=== PATIENT | female | born 1985 | race Caucasian/White ===

== ENCOUNTER → 2017-10-21 16:02 | Outpatient (CLI) | payer OTHER, SELFPAY ==
[2017-10-21 17:32] LABS: Glucose Challenge Gest 1H 50g 146 mg/dL (70-140)
[2017-10-21 17:51] LABS: Hematocrit 35.9 % (37-47); Hemoglobin 11.6 g/dl (12.0-15.0); Mean Corp Hgb Conc 32.3 g/gl (32-36); Mean Corpuscular Hgb 29.5 pg (27.0-32.0); Mean Corpuscular Volume 91.3 fL (81-99); Mean Platelet Vol. 11.4 fl (6.2-12.0); Platelet Count 280 K/mm3 (150-450); RBC Distribution Width CV 13.9 % (11.6-14.6); RBC Distribution Width SD 45.7 fl (35.1-43.9); Red Blood Count 3.93 M/mm3 (4.2-5.4); White Blood Count 11.9 K/mm3 (4.4-11.0)
[2017-10-21 17:57] LABS: Scan Indicated on CBC? Y/N NO
== END ==
PROVIDERS: Visit Provider Obstetrics & Gynecology
DX: Z34.82 Encounter for supervision of other normal pregnancy, second trimester (principal)
CPT/HCPCS: 82950; 85027

== ENCOUNTER → 2017-10-27 08:54 | Outpatient (CLI) | payer OTHER, SELFPAY ==
[2017-10-27 10:04] LABS: Glucose GTT-Gestation. Fasting 75 mg/dL (<105)
[2017-10-27 12:01] LABS: Glucose GTT-Gestational 2 Hr 139 mg/dL (<165)
[2017-10-27 12:03] LABS: Glucose GTT-Gestational 1 Hr 165 mg/dL (<190)
[2017-10-27 13:28] LABS: Glucose GTT-Gestational 3 Hr 98 L (<145)
== END ==
PROVIDERS: Visit Provider Obstetrics & Gynecology
DX: O24.912 Unspecified diabetes mellitus in pregnancy, second trimester (principal); Z3A.00 Weeks of gestation of pregnancy not specified
CPT/HCPCS: 36415; 82951; 82952

== ENCOUNTER → 2017-12-24 13:57 | Outpatient (CLI) | payer OTHER, SELFPAY ==
[2017-12-24 17:55] LABS: Group B Strep DNA By PCR Negative (Negative); Internal Control PASS; Probe Check PASS; Specimen Processing Control PASS
== END ==
PROVIDERS: Visit Provider Obstetrics & Gynecology
DX: Z36.85 Encounter for antenatal screening for Streptococcus B (principal)
CPT/HCPCS: 87081; 87653

== ENCOUNTER 2018-01-23 01:50 | Inpatient (IN) | payer OTHER, SELFPAY ==
[2018-01-23] VITALS (20 sets, daily range): BP systolic 108–148; BP diastolic 47–90; PULSE 78–94; RESP 16–18; TEMP 36.1–37.2; O2SAT 16–99; BMI 33.6
[2018-01-23] MEDS: Lactated Ringers 1,000 ML 50 ML IV ×3 (02:45→09:42)
[2018-01-23 03:01] LABS: Hematocrit 34.9 % (37-47); Hemoglobin 11.4 g/dl (12.0-15.0); Mean Corp Hgb Conc 32.7 g/gl (32-36); Mean Corpuscular Hgb 27.8 pg (27.0-32.0); Mean Corpuscular Volume 85.1 fL (81-99); Mean Platelet Vol. 11.5 fl (6.2-12.0); Platelet Count 239 K/mm3 (150-450); RBC Distribution Width CV 16.2 % (11.6-14.6); RBC Distribution Width SD 49.4 fl (35.1-43.9); Scan Indicated on CBC? Y/N NO; White Blood Count 14.2 K/mm3 (4.4-11.0)
[2018-01-23] MEDS: Ondansetron 4 MG/2 ML Vial IV (03:12)
[2018-01-23] MEDS: fentaNYL-bupivacaine (epidural) 100 ML BAG EPIDURAL (06:56)
[2018-01-23] MEDS: Oxytocin 30 units/NS 500 ml 30 UNITS/500 ML IV.SOLN IV (09:20)
--- NOTE | 2018-01-23 09:37 | PCM.PN.OB ---
Subjective: Patient presented last evening with active labor. Progressed to 7 cm with a bulgy bag of water. Rupture of membranes performed approximately 0330. After approximately 5-6 hours patient remains at same station and dilation with moderate contractions noted. Cervix is now 7 8 cm 95% effaced -2 to -3 station. Will start Pitocin. I have discussed with patient and her family the possibility of needing to proceed with section for failure to progress and suspected CPD if there is no progress in the next few hours. - Physical Exam Weight: 208 lb 6.4 oz Body Mass Index (BMI) 33.6 Intake and Output for Last 24 Hours 01/21/18 01/22/18 01/23/18 23:59 23:59 23:59 Output Total 450 / 450 Balance -450 / -450 Laboratory Tests Past 24 Hrs 01/23/18 01/23/18 02:45 02:45 WBC 14.2 H RBC 4.10 L Hgb 11.4 L Hct 34.9 L MCV 85.1 MCH 27.8 MCHC 32.7 RDW 16.2 H RDW Differential 49.4 H Plt Count 239 MPV 11.5 Blood Type O POSITIVE Antibody Screen NEGATIVE Medical Necessity - Tobacco Use Smoking Status: Former smoker
[2018-01-23] MEDS: Sodium Citrate/Citric Acid 30 ML UDC PO (11:50)
[2018-01-23] MEDS: Cefazolin 2 GM in 0.9% Normal Saline 100 ML IV (12:03)
[2018-01-23] MEDS: Oxytocin 30 units/NS 500 ml 30 UNITS/500 ML IV.SOLN 167 UNITS IV (12:15)
[2018-01-23] MEDS: Methylergonovine 0.2 MG/ML Ampul IM (12:17)
--- NOTE | 2018-01-23 13:37 | PCM.OP.BLANK ---
Operative Report Date of Procedure: 01/23/18 Surgeon: Jan Ruffin MD, FACOG Warehouse Checker: Hoa Corona MD, FACOG Anesthesia: Bob Ruffin MD Anesthesia: Epidural with Duramorph Pre-op Diagnosis: - -Failure to Progress Post-Op Diagnosis: - -Failure to Progress and Cephalopelvic Disproportion Procedure: Primary Low Transverse Cervical Caesarean Section Findings: Viable male with Apgars of 7/9 in occiput anterior presentation with at least stained meconium amniotic fluid and normal three-vessel placenta. Cord around the neck ?1 loose. Indication: This is a 32-year-old who presents in active labor at 40+ weeks. She progressed to about 7 cm, 90% effaced, and -2--3 station. Despite adequate contractions noted by intrauterine pressure catheter, she did not progress for about 8-10 hours. Given this we decided to proceed with section for failure to progress. care has otherwise been uneventful. The patient has been counseled regarding the risk and indications of this procedure including the possibility of bleeding infection and injury to surrounding structures such as bowel bladder. All questions were answered. Procedure: Patient was taken to the operating room where after spinal anesthesia was placed, the patient was prepped and draped in usual sterile fashion and a Gay catheter was placed. The abdomen was entered through a Pfannenstiel incision and peritoneum was entered bluntly. After developing a bladder flap on the lower uterine segment a low transverse incision was made on the uterus and head was easily delivered onto the operative field the nose mouth and oropharynx were bulb suctioned. Subsequently a viable male infant was born with Apgars of 7/9. The was noted to cry move all extremities vigorously on the operative field. The umbilical cord was doubly clamped and ligated and handed to the nursery personnel who were present for the delivery. Placenta was delivered and noted to be 3 vessels and normal. Uterus was exteriorized and remaining placental tissue was removed. The uterus was then closed in 2 layers first with running locked 0 Vicryl suture followed by a second imbricating layer with 0 Vicryl suture. 0 Vicryl suture was then used in a horizontal mattress interrupted fashion to affect final hemostasis of the uterine incision line. Normal fallopian tubes and ovaries were visualized and the uterus was returned to the pelvis. Hemostasis was noted and rectus abdominis muscles were reapproximated in the midline with interrupted Number 0 Vicryl suture in a horizontal mattress fashion. Fascia was closed with running Number 1 PDS Strata fix suture. Subcutaneous tissue was irrigated with copious amouts of saline solution and then closed with running 3-0 Vicryl suture. Skin was closed with 4-0 monocryl suture in a running subcuticular fashion. Steri strips, telfa, and tape were placed across the incision. The patient tolerated the procedure well and was taken to the recovery room in satisfactory condition. Sponge, needle, and instrument counts were all reportedly correct. EBL was less than 500 cc. Ancef 2 gms IV was given prior to the procedure. Spicemen to Pathology: None Complications: None
[2018-01-23] MEDS: miSOPROStol 100 MCG TABLET 400 MCG RECTAL ×2 (13:45→20:26)
[2018-01-23] MEDS: Ketorolac 30 MG/ML Syringe IV (18:19)
[2018-01-23] MEDS: Cefazolin 1 GM/50 ML BAG IV (20:25)
[2018-01-23] MEDS: Lactated Ringers 1,000 ML 100 ML IV (21:28)
[2018-01-24] VITALS (8 sets, daily range): BP systolic 104–114; BP diastolic 60–69; PULSE 101–121; RESP 16–18; TEMP 36.3–37.5; O2SAT 95–99
[2018-01-24] MEDS: Ketorolac 30 MG/ML Syringe IV ×5 (00:23→23:59)
[2018-01-24] MEDS: miSOPROStol 100 MCG TABLET 400 MCG RECTAL (02:56)
[2018-01-24] MEDS: Cefazolin 1 GM/50 ML BAG IV (04:33)
[2018-01-24 04:51] LABS: Hematocrit 27.3 % (37-47); Mean Corpuscular Hgb 28.7 pg (27.0-32.0); Mean Corpuscular Volume 86.9 fL (81-99); Platelet Count 189 K/mm3 (150-450); RBC Distribution Width CV 16.4 % (11.6-14.6); RBC Distribution Width SD 50.3 fl (35.1-43.9); Red Blood Count 3.14 M/mm3 (4.2-5.4); Scan Indicated on CBC? Y/N NO; White Blood Count 12.6 K/mm3 (4.4-11.0)
[2018-01-24] MEDS: 0.9% Saline Lock 10 ML Syringe IV ×4 (05:35→17:39)
[2018-01-24] MEDS: oxyCODONE 5 MG Tablet PO ×2 (13:05→17:45)
--- NOTE | 2018-01-24 19:00 | PCM.PN.OB ---
Subjective: Postoperative day #1 status post primary section Patient without complaints. Tolerating diet well. Some problems with mild intermittent shortness of breath overnight which has resolved. - Physical Exam Vital Signs AF, VSS Temp Pulse Resp BP Pulse Ox 99.5 F H 108 H 16 110/60 97 01/24/18 12:00 01/24/18 12:00 01/24/18 12:00 01/24/18 12:00 01/24/18 12:00 Oxygen Delivery Method Room Air Weight: 208 lb 6.4 oz Body Mass Index (BMI) 33.6 Intake and Output for Last 24 Hours 01/22/18 01/23/18 01/24/18 23:59 23:59 23:59 Intake Total 4738 / 4738 435 / 435 Output Total 2300 / 2300 1350 / 1350 Balance 2438 / 2438 -915 / -915 Laboratory Tests Past 24 Hrs 01/24/18 04:43 WBC 12.6 H RBC 3.14 L Hgb 9.0 L Hct 27.3 L MCV 86.9 MCH 28.7 MCHC 33.0 RDW 16.4 H RDW Differential 50.3 H Plt Count 189 MPV 11.0 Wound is clean, dry, intact. Good urine output. Hemoglobin okay. Medical Necessity - Tobacco Use Smoking Status: Former smoker Assessment/Plan Doing well postoperative day #1 status post primary section for failure to progress and CPD. Continuing present care.
[2018-01-25] MEDS: oxyCODONE 5 MG Tablet PO ×4 (00:22→17:19)
[2018-01-25] MEDS: Senna/Docusate Sodium 1 Tablet PO ×2 (00:23→19:17)
[2018-01-25 01:35] VITALS: BP 101/59; PULSE 104; RESP 16; TEMP 36.9
[2018-01-25] MEDS: Ketorolac 30 MG/ML Syringe IV ×2 (06:16→12:40)
[2018-01-25] MEDS: 0.9% Saline Lock 10 ML Syringe IV ×3 (06:16→12:40)
[2018-01-25 07:29] VITALS: BP 105/55; PULSE 87; RESP 16; TEMP 36.6; O2SAT 96
--- NOTE | 2018-01-25 11:28 | PCM.PN.OB ---
Subjective: Pt without complaints. Tolerating diet well. Positive flatus. Wants to stay another day. - Physical Exam Vital Signs AF, VSS Temp Pulse Resp BP Pulse Ox 97.8 F 87 16 105/55 L 96 01/25/18 07:29 01/25/18 07:29 01/25/18 07:29 01/25/18 07:29 01/25/18 07:29 Oxygen Delivery Method Room Air Weight: 208 lb 6.4 oz Body Mass Index (BMI) 33.6 Intake and Output for Last 24 Hours 01/23/18 01/24/18 01/25/18 23:59 23:59 23:59 Intake Total 4738 / 4738 435 / 435 Output Total 2300 / 2300 1750 / 1750 Balance 2438 / 2438 -1315 / -1315 Wound CDI. Good UOP. Medical Necessity - Tobacco Use Smoking Status: Former smoker Assessment/Plan Doing well. Continue present care.
[2018-01-25 14:02] VITALS: BP 117/70; PULSE 90; RESP 16; TEMP 36.6; O2SAT 97
[2018-01-25 19:55] VITALS: BP 136/78; PULSE 100; RESP 18; TEMP 36.7; O2SAT 100
[2018-01-26] MEDS: Ibuprofen 600 MG Tablet PO (00:14)
[2018-01-26 03:00] VITALS: BP 114/64; PULSE 87; RESP 16; TEMP 36.4; O2SAT 94
--- NOTE | 2018-01-26 07:07 | DCINST_ITS ---
Discharge Diet: No Restrictions Discharge Activity: May not drive while taking narcotic pain medications., May Shower, May Take a Tub Bath May resume sexual activity in: 4-6 weeks Lifting Restrictions: 20 pounds Additional Activity Instructions:: Nothing in the vagina for 4-6 weeks. You may return to work/school in 6 weeks. Change Dressing in (Days):: 4 Remove Dressing in (days):: 4 Cleanse incision/area with: Soap & Water, Keep Dressing Clean & Dry Additional Instructions: If you experience any of the following, contact your healthcare provider. * Bleeding that soaks a pad every hour for 2 hours * Fever 100.4 or higher * Unrelieved incision or abdominal pain * Swelling, redness, discharge or bleeding from your incision * Problems urinating (including inability to urinate or burning while urinating) . * Visual changes * Severe headache * Flu-like symptoms * Pain or redness in one of both of your breasts * Pain, warmth, tenderness or swelling in your legs, especially the calf area * Frequent nausea and vomiting * Symptoms of depression or anxiety If you experience any of the following, call 911 or go to the nearest Emergency Room. * Chest pain * Problems breathing * Seizure activity * Partial or complete paralysis of a body part, slurred speech, weakness or drooping of the face, or a sudden inability to walk or hold your balance Allergies/Adverse Reactions: Allergies No Known Allergies Allergy (Verified 01/23/18 02:37) Medications to take at Discharge Docusate Sodium [Colace] 100 mg PO BID PRN PRN #60 cap 01/23/18 Oxycodone [Oxyir] 5 mg PO Q4H PRN PRN 7 Days #20 tab 01/23/18 Vit No.130/Iron/FA [ Tablet] 1 tab PO DAILY 01/23/18 The following prescriptions were given: Oxycodone [Oxyir] 5 mg PO Q4H PRN PRN 7 Days #20 tab PRN Reason: Severe Pain (-04/14) Docusate Sodium [Colace] 100 mg PO BID PRN PRN #60 cap PRN Reason: Constipation Follow-Up: Call to make an appointment with your doctor for an incision check in 1-2 weeks. You will also need a 6 week post- follow up appointment. Test results from this visit will be discussed in further detail at your follow- up appointment, if applicable. Please Follow Up With: Jan Ruffin MD - [phone] When: Call to make an appointment for an incision check in 2 weeks. Primary Care Physician: Care Physician,No Primary [Primary Care Provider] - Proposed Discharge Date: 01/26/18
--- NOTE | 2018-01-26 07:19 | PCM.PN.OB ---
Subjective: pod#3 primary C/S Doing well Ready to go home today. Using abdominal binder and likes that. - Physical Exam General: Alert, Oriented x3, Cooperative, No apparent distress HEENT: Atraumatic Neck: Supple Abdomen: Soft - fundus firm minimally tender c/w postop status at 2 cm inferior to umbilicus Skin: Incision - CDI. Steristrips in place Neurological: Cranial nerves II-XII grossly intact Psych/Mental Status: Normal Affect Vital Signs Temp Pulse Resp BP Pulse Ox 97.6 F L 87 16 114/64 94 / 03:00 01/26/18 03:00 01/26/18 03:00 01/26/18 03:00 01/26/18 03:00 Oxygen Delivery Method Room Air Weight: 94.529 kg Body Mass Index (BMI) 33.6 Intake and Output for Last 24 Hours 01/24/18 01/25/18 01/26/18 23:59 23:59 23:59 Intake Total 435 / 435 Output Total 1750 / 1750 Balance -1315 / -1315 Medical Necessity - Tobacco Use Smoking Status: Former smoker Assessment/Plan POD#3 Primary C/S Stable postop. D/c home today. RTO In 2 wk for postop check. Dischg instructions reviewed.
[2018-01-26] MEDS: oxyCODONE 5 MG Tablet PO (07:40)
[2018-01-26 07:50] VITALS: BP 120/82; PULSE 94; RESP 16; TEMP 36.6; O2SAT 98
--- NOTE | 2018-01-26 12:29 | PCM.DC.SUM ---
Discharge Date and Diagnosis Date of Admission: 01/23/18 - term IUP, labor Date of Discharge: 01/26/18 - S/P primary C/S for CPD, FTP Hospital Course and Treatment Consultations 01/23/18 02:30 Consult: Anesthesia Routine Comment: Reason For Exam: LABOR Operations: - - Augmentation of labor. Primary C section for failure to progress, cephalopelvic disproportion. Summary of Care Provided: The patient is a 32 year old female presents in labor at term. Labor augmented with amniotomy and pitocin. Despite UCs. no further progress beyond 7 cm for 8-10 hrs. Primary C/S performed on 01/23/18 Uncomplicated. Delivered [place] viable male Ap 01/11 Normal pelvic anatomy noted. Postoperative course uneventful. EBL 500 cc. Preoperative Hgb 11.4 g/dl. Postop hgb 9.0 g/dl. Dischg home in stable condition on POD #3 . Exam benign: incision CDI. AVSS. Discharge Diet: No Restrictions Discharge Activity: May not drive while taking narcotic pain medications., May Shower, May Take a Tub Bath May resume sexual activity in: 4-6 weeks Additional Activity Instructions:: Nothing in the vagina for 4-6 weeks. You may return to work/school in 6 weeks. Change Dressing in (Days):: 4 Remove Dressing in (days):: 4 Cleanse incision/area with: Soap & Water, Keep Dressing Clean & Dry Home Medications: Medications to take at Discharge Docusate Sodium [Colace] 100 mg PO BID PRN PRN #60 cap 01/23/18 Oxycodone [Oxyir] 5 mg PO Q4H PRN PRN 7 Days #20 tab 01/23/18 Vit No.130/Iron/FA [ Tablet] 1 tab PO DAILY 01/23/18 Following Prescrptions Were Given to Patient: Oxycodone [Oxyir] 5 mg PO Q4H PRN PRN 7 Days #20 tab PRN Reason: Severe Pain (6-1010) Docusate Sodium [Colace] 100 mg PO BID PRN PRN #60 cap PRN Reason: Constipation Primary Care Physician: Care Physician,No Primary [Primary Care Provider] - Please Follow Up With: Jan Ruffin MD - [phone] When: Call to make an appointment for an incision check in 2 weeks. Medical Necessity - Tobacco Use Smoking Status: Former smoker Meaningful Use Info Meaningful Use Diagnoses (Choose all that apply): None applicable
--- NOTE | 2018-01-26 12:34 | DS.PCM_ITS ---
Discharge Date and Diagnosis Date of Admission: 01/23/18 - term IUP, labor Date of Discharge: 01/26/18 - S/P primary C/S for CPD, FTP Hospital Course and Treatment Consultations 01/23/18 02:30 Consult: Anesthesia Routine Comment: Reason For Exam: LABOR Operations: - - Augmentation of labor. Primary C section for failure to progress, cephalopelvic disproportion. Summary of Care Provided: The patient is a 32 year old female presents in labor at term. Labor augmented with amniotomy and pitocin. Despite UCs. no further progress beyond 7 cm for 8 -10 hrs. Primary C/S performed on 01/23/18 Uncomplicated. Delivered es[place] viable male Ap 01/11 Normal pelvic anatomy noted. Postoperative course uneventful. EBL 500 cc. Preoperative Hgb 11.4 g/dl. Postop hgb 9.0 g/dl. Dischg home in stable condition on POD #3 . Exam benign: incision CDI. AVSS. Discharge Diet: No Restrictions Discharge Activity: May not drive while taking narcotic pain medications., May Shower, May Take a Tub Bath May resume sexual activity in: 4-6 weeks Additional Activity Instructions:: Nothing in the vagina for 4-6 weeks. You may return to work/school in 6 weeks. Change Dressing in (Days):: 4 Remove Dressing in (days):: 4 Cleanse incision/area with: Soap & Water, Keep Dressing Clean & Dry Home Medications: Medications to take at Discharge Docusate Sodium [Colace] 100 mg PO BID PRN PRN #60 cap 01/23/18 Oxycodone [Oxyir] 5 mg PO Q4H PRN PRN 7 Days #20 tab 01/23/18 Vit No.130/Iron/FA [ Tablet] 1 tab PO DAILY 01/23/18 Following Prescrptions Were Given to Patient: Oxycodone [Oxyir] 5 mg PO Q4H PRN PRN 7 Days #20 tab PRN Reason: Severe Pain (6-1010) Docusate Sodium [Colace] 100 mg PO BID PRN PRN #60 cap PRN Reason: Constipation Primary Care Physician: Care Physician,No Primary [Primary Care Provider] - Please Follow Up With: Jan Ruffin MD - [phone] When: Call to make an appointment for an incision check in 2 weeks. Medical Necessity - Tobacco Use Smoking Status: Former smoker Meaningful Use Info Meaningful Use Diagnoses (Choose all that apply): None applicable
== END 2018-01-26 10:30 | disposition home or self-care (01) | DRG 766 ==
PROVIDERS: Admitting Provider Obstetrics & Gynecology; Visit Provider Obstetrics & Gynecology
DX: O62.2 Other uterine inertia (principal); O77.0 Labor and delivery complicated by meconium in amniotic fluid; O33.9 Maternal care for disproportion, unspecified; O69.81X0 Labor and delivery complicated by cord around neck, without compression, not applicable or unspecified; Z3A.40 40 weeks gestation of pregnancy; Z87.891 Personal history of nicotine dependence; Z37.0 Single live birth
CPT/HCPCS: 59025; 59050; 85027; 86850; 86900; 99218; J7120; A4216; G0378; J2405

== ENCOUNTER 2018-02-04 15:30 | Outpatient (CLI) | payer OTHER, SELFPAY | END 2018-02-04 16:30 | disposition home or self-care (01) | LOC: WPOUT 15:34 → WP 15:34 | PROVIDERS: Visit Provider Obstetrics & Gynecology | DX: Z39.1 Encounter for care and examination of lactating mother (principal) | CPT/HCPCS: 96152 ==

== ENCOUNTER → 2018-03-11 14:38 | Outpatient (CLI) | payer OTHER, SELFPAY ==
[2018-03-18 08:29] LABS: HPV Reflexed? NOT INDICATED
== END ==
PROVIDERS: Visit Provider Obstetrics & Gynecology
DX: R87.613 High grade squamous intraepithelial lesion on cytologic smear of cervix (HGSIL) (principal)
CPT/HCPCS: 88175; G0145

== ENCOUNTER → 2018-04-01 07:49 | Outpatient (CLI) | payer OTHER, MEDICAID, SELFPAY ==
--- NOTE | 2018-04-01 | IMM_PTH ---
PATIENT: CAMILO HOUSER LOC: [facility] U#:[id number] AGE/SX: 40/F ROOM: RE04/01/[address]: Dr. Shyam gN MD : 1985 BED: DIS: SPEC #: [id number] RECD: 04/05/18 12:44 STATUS: JESSICA REQ #: [id number] EVA: 04/01/18 00:[address]: Shyam Ng DEPT: IMMUNOHISTOCHEMISTRY RECD BY: Macie Duran ENTERED: 04/05/18 12:44 SP TYPE: IMMUNO OTHR DR: No Primary Care Phys Tissues: A - Uterine cervix, NOS B - Endocervical Procedures: p16 (initial) KI-67 (add) PHYSICIAN & INSTITUTION [place] [id number] SPECIMEN INFORMATION: Tissue Source: A - Cervical biopsy, B - ECC Clinical Info: JAYDON Specimen Number: [id number] A & B CPT code: 00229 x2, 36663 x2 METHODOLOGY: Deparaffinized sections of prefer/formalin-fixed tissue or PAP/DQ stained slides are incubated with monoclonal/polyclonal antibodies/oligonucleotide probes. Localization is made via biotin free immunoperoxidase method. Appropriate controls are performed and reacted as expected. Results on target cell population are indicated in the following table: RESULTS: ANTIBODY / CLONE RESULT Block A P16 (E6H4) positive, block staining Ki-67 (30-9) positive, moderate Block B P16 (E6H4) positive, block staining Ki-67 (30-9) positive, moderate These tests were developed and their performance characteristics determined by [facility]. They may not have been cleared or approved by the U.S. Food and Drug Administration. The FDA has determined that such clearance or approval is not necessary. INTERPRETATION: A. Cervical biopsy: Focal mild and moderate squamous dysplasia. B. ECC: Detached and unoriented fragments of squamous epithelium with moderate dysplasia. SJ:petar 04/06/18
--- NOTE | 2018-04-01 | CER_PTH ---
PATIENT: CAMILO HOUSER LOC: [facility] U#:[id number] AGE/SX: 40/F ROOM: RE04/01/[address]: Dr. Shyam Ng MD : 1985 BED: DIS: SPEC #: [id number] RECD: 04/02/18 13:10 STATUS: JESSICA AG #: [id number] EVA: 04/01/18 00:[address]: Shyam Ng DEPT: SURGICAL PATHOLOGY RECD BY: Hira Lange ENTERED: 04/02/18 13:10 SP TYPE: CERV OTHR DR: No Primary Care Phys Tissues: A - Uterine cervix, NOS B - Endocervical Procedures: Surgery Specimen Level IV HEADER OPERATION: Colposcopy with biopsy PRE-OP DIAGNOSIS: LGSIL TISSUE SUBMITTED: A - Cervical biopsy, B - ECC MICROSCOPIC DIAGNOSIS A. 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 Mild chronic inflammation. B. ECC: Detached and unoriented fragment of squamous epithelium with moderate dysplasia. Fragments of benign endocervical mucosa with chronic inflammation. GENA:petar 04/05/18 COMMENT A & B. Immunohistochemistry ([id number]) for surrogate HPV marker (p16) supports the above diagnosis. Please make reference to previous specimen ([id number]) cervix at 12 o'clock, biopsy with diagnosis of moderate to severe squamous dysplasia. MICROSCOPIC DESCRIPTION Slides are reviewed. GROSS DESCRIPTION A - Received in fixative is one container labeled with the patient's name and designated cervical biopsy. The specimen consists of multiple irregular fragments of light condon soft tissue that in aggregate measure 1 x 0.5 x 0.1 cm. The specimen is totally submitted in one cassette. B - Received in fixative is one container labeled with the patient's name and designated ECC. The specimen consists of multiple fragments of hemorrhagic mucoid tissue that in aggregate measure 1 x 0.2 x 0.1 cm. The specimen is totally submitted in one cassette. / GENA:petar 04/02/18 TC:5 CPT: 03626 x2
== END ==
LOC: LAB 04-02 07:55 → LABSPEC 04-02 08:07
PROVIDERS: Referring Provider Obstetrics & Gynecology; Visit Provider Obstetrics & Gynecology
DX: R87.612 Low grade squamous intraepithelial lesion on cytologic smear of cervix (LGSIL) (principal)
CPT/HCPCS: 88305; 88341; 88342

== ENCOUNTER 2018-04-29 10:29 | Day surgery (SDC) | payer MEDICAID, SELFPAY ==
[2018-04-27 15:25] LABS: Hematocrit 40.1 % (37-47); Hemoglobin 12.6 g/dl (12.0-15.0); Mean Corp Hgb Conc 31.4 g/gl (32-36); Mean Corpuscular Hgb 26.8 pg (27.0-32.0); Mean Corpuscular Volume 85.1 fL (81-99); Mean Platelet Vol. 10.3 fl (6.2-12.0); Platelet Count 273 K/mm3 (150-450); RBC Distribution Width CV 16.4 % (11.6-14.6); RBC Distribution Width SD 51.5 fl (35.1-43.9); Red Blood Count 4.71 M/mm3 (4.2-5.4); White Blood Count 5.5 K/mm3 (4.4-11.0)
[2018-04-27 15:30] LABS: International Normalized Ratio 1.1; Prothrombin Time (Protime)PT. 13.8 SECONDS (11.7-14.9); Scan Indicated on CBC? Y/N NO
[2018-04-27 15:31] LABS: Partial Thromboplast Time 26.1 Seconds (24.1-36.2)
[2018-04-27 15:55] LABS: Pregnancy, Serum, hCG Quali. NEGATIVE Negative (0-9 Nonpreg)
[2018-04-29] VITALS (10 sets, daily range): BP systolic 94–116; BP diastolic 57–73; PULSE 41–68; RESP 16; TEMP 36.1–37.1; O2SAT 98–100; BMI 26.4
--- NOTE | 2018-04-29 | IMM_PTH ---
PATIENT: CAMILO HOUSER LOC: [facility] [place] U#:[id number] AGE/SX: 32/F ROOM: RE04/29/[address]: Dr. Shyam Ng MD : 1985 BED: DIS: 04/29/2018 SPEC #: [id number] RECD: 04/30/18 14:43 STATUS: JESSICA REQ #: [id number] EVA: 04/29/18 00:[address]: Shyam Ng DEPT: IMMUNOHISTOCHEMISTRY RECD BY: Macie Duran ENTERED: 04/30/18 14:44 SP TYPE: IMMUNO OTHR DR: Dr. Madison Hammer MD Tissues: Exocervix Procedures: p16 (initial) KI-67 (add) PHYSICIAN & [place] [address] SPECIMEN INFORMATION: Tissue Source: Exocervix biopsy Clinical Info: Cervical dysplasia Specimen Number: [id number] CPT code: 76245, 43106 METHODOLOGY: Deparaffinized sections of prefer/formalin-fixed tissue or PAP/DQ stained slides are incubated with monoclonal/polyclonal antibodies/oligonucleotide probes. Localization is made via biotin free immunoperoxidase method. Appropriate controls are performed and reacted as expected. Results on target cell population are indicated in the following table: RESULTS: ANTIBODY / CLONE RESULT P16 (E6H4) positive, block staining Ki-67 (30-9) positive, moderate These tests were developed and their performance characteristics determined by [facility]. They may not have been cleared or approved by the U.S. Food and Drug Administration. The FDA has determined that such clearance or approval is not necessary. INTERPRETATION: Exocervix biopsy: Focal moderate squamous dysplasia. SJ:petar 05/03/18
--- NOTE | 2018-04-29 | CER_PTH ---
PATIENT: CAMILO HOUSER LOC: [facility] [place] U#:[id number] AGE/SX: 32/F ROOM: RE04/29/[address]: Dr. Shyam Ng MD : 1985 BED: DIS: 04/29/2018 SPEC #: [id number] RECD: 04/29/18 14:40 STATUS: JESSICA AG #: [id number] EVA: 04/29/18 00:[address]: Shyam Ng DEPT: SURGICAL PATHOLOGY RECD BY: Hira Lange ENTERED: 04/29/18 14:41 SP TYPE: CERV OTHR DR: Dr. Madison Hammer MD Tissues: Uterine cervix, NOS Procedures: Surgery Specimen Level V HEADER OPERATION: LEEP cone PRE-OP DIAGNOSIS: Cervical dysplasia TISSUE SUBMITTED: Exocervix biopsy MICROSCOPIC DIAGNOSIS Exocervix, LEEP conization: Focal moderate squamous dysplasia with HPV changes (HGSIL and JANIE II). The resection margins are free of dysplastic changes. See comment. GENA:petar 04/30/18 COMMENT Immunohistochemistry ([id number]) for surrogate HPV marker (p16) supports the above diagnosis. Please make reference to previous specimen ([id number]) cervix at 12 o'clock, biopsy with diagnosis of moderate to severe squamous dysplasia. MICROSCOPIC DESCRIPTION Slides are reviewed. GROSS DESCRIPTION Received in fixative is one container labeled with the patient's name and designated exocervix biopsy. The specimen consists of a piece of condon, indurated tissue consistent with LEEP conization measuring 1.8 x 1.5 cm and up to 0.6 cm in length. No mucosal lesion is identified. The nonmucosal surface is inked black. The endocervical margin is inked blue. The specimen is radially sectioned and submitted entirely in four cassettes with each cassette containing one quadrant. / GENA:petar 04/29/18 TC:5 CPT: 76912
[2018-04-29 10:53] LABS: Internal QC Validated? YES +Cl - CLEAR BKGD; Pregnancy, Urine Negative Negative
--- NOTE | 2018-04-29 12:12 | PCM.DC ---
You will use the following diet at home:: No restrictions Your food should be the consistency of: Regular Discharge Activity: Return to Normal Activity, May Drive, May not drive while taking narcotic pain medications., May Shower Return to work on:: 05/03/18 May shower in (days): 0 May resume sexual activity in: 4 weeks Call your doctor if your incision/area has: Sudden Increased Bleeding, Foul Smelling Discharge Call your doctor if you observe: Fever of 101 or Higher, Inability to urinate, Inability to have a bowel movement, Using more than one pad per hour, Shortness of breath, Chest pain, Calf discomfort, Uncontrolled pain Cleanse incision/area with: Soap & Water Allergies/Adverse Reactions: Allergies No Known Allergies Allergy (Verified 04/26/18 10:18) Medications to take at Discharge Vit No.130/Iron/FA [ Tablet] 1 tab PO DAILY 01/23/18 Hydrocodone Bitart/Apap 5-325 [[place] 5/325] 1 tab PO Q4H PRN PRN 7 Days #10 tab 04/29/18 Ibuprofen 600 mg PO 4X/DAY #30 tab 04/29/18 The following prescriptions were given: Hydrocodone Bitart/Apap 5-325 [[place] 5/325] 1 tab PO Q4H PRN PRN 7 Days #10 tab PRN Reason: Severe Pain (6-04/14) Ibuprofen 600 mg PO 4X/DAY #30 tab Primary Care Physician: Madison Hammer MD [Primary Care Provider] - Test Results: Test results from this visit will be discussed in further detail at your follow-up appointment, if applicable. Please Follow Up With: Shyam Ng MD When: one week Proposed Discharge Date: 04/29/18
--- NOTE | 2018-04-29 12:15 | PCM.OPRPT ---
Problem List (1) Cervical dysplasia Status: Chronic Report of Operation Date of Procedure: 04/29/18 Pre-Operative Diagnosis: Moderate Cervical Dysplasia Post-Operative Diagnosis: Same Surgery/Procedure Performed:: Loop Electrosurgical Excisional Procedure (LEEP) Description of Surgical Findings:: No obvious cervical lesions industrial engineering director: None Type of Anesthesia:: MAC Anesthesiologist: Aaron Berger Special Medications: none Specimen's removed: portion of exocervix Drains: none Estimated Blood Loss (mL): 10cc Fluids Replaced: 500cc LR Description of Procedure: Claudia was taken to the OR with IV running. She was given two grams of cefotetan intravenously for surgical prophylaxis prior to the surgery. SCDs were in place and operational throughout the case. MAC anesthesia was introduced without complication. She was then prepped and draped in the dorsal lithotomy position. A shielded speculum was placed. The cervix was painted with Lugol's solution to identify the transition zone. Using a medium sized loop the exocervix was removed. The base and margins of the defect were cauterized with ball cautery. Hemostasis was excellent. All instruments were removed from the vagina. Sponge and instrument counts were correct. She was reversed from anesthesia and taken to the recovery room in stable condition. Grafts/Implants Used: none - Complications none - Admit VTE Documentation VTE Present on Admission: No VTE Mechan Device Prophylaxis: SCD's VTE Pharm Prophylaxis ordered?: No
--- NOTE | 2018-04-29 12:46 | OP.PCM_ITS ---
Problem List (1) Cervical dysplasia Status: Chronic Report of Operation Date of Procedure: 04/29/18 Pre-Operative Diagnosis: Moderate Cervical Dysplasia Post-Operative Diagnosis: Same Surgery/Procedure Performed:: Loop Electrosurgical Excisional Procedure (LEEP) Description of Surgical Findings:: No obvious cervical lesions conveyor belt repairer: None Type of Anesthesia:: MAC Anesthesiologist: Aaron Berger Special Medications: none Specimen's removed: portion of exocervix Drains: none Estimated Blood Loss (mL): 10cc Fluids Replaced: 500cc LR Description of Procedure: Claudia was taken to the OR with IV running. She was given two grams of cefotetan intravenously for surgical prophylaxis prior to the surgery. SCDs were in place and operational throughout the case. MAC anesthesia was introduced without complication. She was then prepped and draped in the dorsal lithotomy position. A shielded speculum was placed. The cervix was painted with Lugol's solution to identify the transition zone. Using a medium sized loop the exocervix was removed. The base and margins of the defect were cauterized with ball cautery. Hemostasis was excellent. All instruments were removed from the vagina. Sponge and instrument counts were correct. She was reversed from anesthesia and taken to the recovery room in stable condition. Grafts/Implants Used: none - Complications none - Admit VTE Documentation VTE Present on Admission: No VTE Mechan Device Prophylaxis: SCD's VTE Pharm Prophylaxis ordered?: No
[2018-04-29] MEDS: Ketorolac 30 MG/ML Syringe IV (13:10)
== END 2018-04-29 14:20 | disposition home or self-care (01) ==
LOC: SDC 10:31 → AC 10:31
PROVIDERS: Family Provider Family Medicine; PCP Family Medicine; Referring Provider Obstetrics & Gynecology; Visit Provider Obstetrics & Gynecology
PROC: 0UBC7ZZ Excision of Cervix, Via Natural or Artificial Opening (ICD-10-PCS; CPT 57522; principal; 2018-04-29 11:50)
DX: N87.1 Moderate cervical dysplasia (principal); Z87.891 Personal history of nicotine dependence; Z86.718 Personal history of other venous thrombosis and embolism
CPT/HCPCS: 00940; 57522; 36415; 81025; 84703; 85027; 85610; 85730; 86850; 86900; 88307; 88341; 88342; J7120; J2405

== ENCOUNTER → 2018-10-25 16:20 | Outpatient (CLI) | payer MEDICAID, SELFPAY ==
[2018-04-29 10:51] VITALS: BMI 26.4
[2018-10-29 13:28] LABS: HPV Reflexed? NOT INDICATED
== END ==
PROVIDERS: Visit Provider Obstetrics & Gynecology
DX: R87.612 Low grade squamous intraepithelial lesion on cytologic smear of cervix (LGSIL) (principal)
CPT/HCPCS: 88175; G0145

== ENCOUNTER → 2019-06-22 10:17 | Outpatient (CLI) | payer MEDICAID, SELFPAY ==
[2018-04-29 10:51] VITALS: BMI 26.4
[2019-06-24 12:07] LABS: Age Gdln ACOG Testing 30-65 (.)
[2019-06-24 16:29] LABS: HPV APTIMA, High Risk Negative (Negative); HPV Reflexed? YES, CHARGE PATIENT
== END ==
PROVIDERS: Visit Provider Obstetrics & Gynecology
DX: Z12.4 Encounter for screening for malignant neoplasm of cervix (principal); R87.613 High grade squamous intraepithelial lesion on cytologic smear of cervix (HGSIL)
CPT/HCPCS: 87624; 88175; G0145

== ENCOUNTER → 2020-04-10 | Outpatient (CLI) | payer MEDICAID, SELFPAY ==
[2020-04-10 11:07] LABS: Color, Urine Yellow (Yellow); Glucose, Dipstick Normal (Normal); Ketone-Dipstick 5 mg/dl (Negative); Leukocyte Esterase-Dipstick 500 /ul (Negative); Nitrite-Dipstick Negative (Negative); Occult Blood-Urine Negative /ul (Negative); Protein-Dipstick Negative (Negative); Urine Bilirubin Dipstick Negative (Negative); Urine Clarity Sl. Cloudy (Clear); Urine Urobilinogen Normal (Normal)
[2020-04-10 11:10] LABS: Absolute Lymphocyte Count 1.21 X10^3/uL (0.83-4.51); Absolute Neutrophil Count 6.5 X10^3/uL (2.0-7.7); Basophil# 0.02 X10^3/uL; Basophil% 0.2 % (0-1); Eosinophil# 0.06 X10^3/uL; Eosinophils% 0.7 % (0-5); Hematocrit 41.2 % (37-47); Hemoglobin 13.4 g/dL (12.0-15.0); Lymphocyte # 1.21 X10^3/ul (4.0); Lymphocyte % 14.6 % (19-41); Mean Corp Hgb Conc 32.5 g/dL (32-36); Mean Corpuscular Hgb 29.9 pg (27.0-32.0); Mean Platelet Vol. 10.4 fl (6.2-12.0); Monocyte# 0.48 X10^3/uL; Monocyte% 5.8 % (0-10); NRBC Flagged by Analyzer 0 % (0-5); Neutrophil % 78.5 % (47-70); Platelet Count 293 K/mm3 (150-450); RBC Distribution Width CV 13.2 % (11.6-14.6); RBC Distribution Width SD 45.1 fl (35.1-43.9); Red Blood Count 4.48 M/mm3 (4.2-5.4); White Blood Count 8.3 K/mm3 (4.4-11.0)
[2020-04-11 09:36] LABS: HIV - WCH Non-Reactive (Nonreactive); Hepatitis B Surface Antigen Non-Reactive (Nonreactive); Hepatitis C Antibody Non-Reactive (Nonreactive); Rubella IgG 203.3 IU/mL
[2020-04-12 01:34] LABS: Prenatal RPR NONREACTIVE (NONREACTIVE)
[2020-04-13 03:08] LABS: Chlamydia By Nucleic Acid AMP Negative (Negative)
[2020-04-13 04:53] LABS: Gonococcus By Nucleic Acid AMP Negative (Negative)
== END | disposition home or self-care (01) ==
LOC: WOBLAB 09:30
PROVIDERS: Visit Provider Obstetrics & Gynecology
DX: Z34.81 Encounter for supervision of other normal pregnancy, first trimester (principal)
CPT/HCPCS: 36415; 81002; 85025; 86703; 86762; 86803; 87086; 87088; 87340; 87491; 87591; 87624; 88175; G0145

== ENCOUNTER → 2020-08-20 08:40 | Outpatient (CLI) | payer MEDICAID, SELFPAY ==
[2020-08-20 11:51] LABS: Hematocrit 36.6 % (37-47); Hemoglobin 11.7 g/dL (12.0-15.0); Mean Corpuscular Hgb 29.6 pg (27.0-32.0); Mean Corpuscular Volume 92.7 fL (81-99); Platelet Count 252 K/mm3 (150-450); RBC Distribution Width CV 14.6 % (11.6-14.6); RBC Distribution Width SD 49.7 fl (35.1-43.9); Red Blood Count 3.95 M/mm3 (4.2-5.4); White Blood Count 11.1 K/mm3 (4.4-11.0)
[2020-08-20 12:03] LABS: Glucose Challenge Gest 1H 50g 159 mg/dL (70-140)
== END ==
PROVIDERS: Visit Provider Obstetrics & Gynecology
DX: Z34.82 Encounter for supervision of other normal pregnancy, second trimester (principal)
CPT/HCPCS: 36415; 82950; 85027

== ENCOUNTER → 2020-08-23 06:51 | Outpatient (CLI) | payer MEDICAID, SELFPAY ==
[2020-08-23 07:26] LABS: Glucose GTT-Gestation. Fasting 95 mg/dL (<105)
[2020-08-23 08:49] LABS: Glucose GTT-Gestational 1 Hr 216 mg/dL (<190)
[2020-08-23 10:30] LABS: Glucose GTT-Gestational 2 Hr 167 mg/dL (<165)
[2020-08-23 11:28] LABS: Glucose GTT-Gestational 3 Hr 137 L (<145)
== END ==
PROVIDERS: Referring Provider Obstetrics & Gynecology; Visit Provider Obstetrics & Gynecology
DX: O24.912 Unspecified diabetes mellitus in pregnancy, second trimester (principal); Z3A.00 Weeks of gestation of pregnancy not specified
CPT/HCPCS: 36415; 82951; 82952

== ENCOUNTER 2020-10-08 07:00 | Outpatient (RCR) | payer MEDICAID, SELFPAY ==
--- NOTE | 2020-08-30 08:23 | HP.PTEVAL ---
Patient's Visit Information CAMILO HOUSER is a 35 year old F referred to Physical Therapy by Dr. Kishor Henley MD with a diagnosis of pubic pain. Date of Evaluation: 08/30/20 Physical Therapist: Arabella Dejesus DPT - Visit Plan Frequency: 2x /Week Duration: 4 Weeks Plan: aquatic therapy- increase core and LE strength and stability. 6 months - Subjective 2 months now has expericend excrutiating pubic pain- is 6 months . Pt experinced this with her last pregancy but was not as bad. 2.5 year old other child. Pain: 6/10. L leg inner thigh and pubic area. burning sensation (lightening, fire). sporatic. first thing in morning is bad. allevaite: 1/10 sitting with feet up. has to find correct position in sitting. wosrt: 8/10 rolling over in bed, putting on pants, walking. denies numbness and tingling. sleep: uncomfortable, rolling over is excrutating. pillow between knees and one behind back. occupation: stay at home mom. Activity: taking care of her 2.5 year old. Meds: . PMHx: gestational diabetes (on thursday) - Objective Posture: FH,RS, anterior pelvic tilt. Observation: 6 month (girl). Gait: increased LIDIA, decreased stride length bilateral-turned out toes bilateral. stairs: BUE/single HR with recip and decreased speed. HR/TR: able to perform with no increase in pain. SLS: increased time to weight shift- 5 seconds bilateral UE support. ROM: hip/knee/ankle: WFL. Strength: core: poor, bilateral hip: flex: 4-/5, abd/add: 4-/5 with pain, ER: 4/5, IR: 4-/5 with pain. knee: flex/ext: 4/5, ankle: 4+/5 - Goals Goal 1:: Pt will be I with HEP and progression Goal Time Frame: 4-6 Weeks Goal 2:: Pt will report decreased pain for 1 week with 1/10 in order to increase I fucntional mobility Goal Time Frame: 4-6 Weeks Goal 3:: Pt will demonstrate increase LE hip strength to 5/5 in order to increase I ADLs. Goal Time Frame: 4-6 Weeks Goal 4:: Patient will maintain proper posture t/o tx session to demo increased core s/s. Goal Time Frame: 4-6 Weeks - Rehabilitation Potential Physical Therapy Diagnosis: Pt presents with decreased core strength and stability secondary to pregancy. Rehabilitation Potential: Good - Anticipated Interventions Patient/Client Instruction: Educate patient on: Plan of Care, Benefits of Fitness Program For the Purpose of:: To improve muscle performance and motor function Therapeutic Exercise to Include: Strength training, Balance training, Body mechanics, Postural training, Flexibilty training, Gait and locomotor training, In an aquatic setting, Dynamic Lumbar Stabilization For the Purpose of:: To improve muscle performance and motor function, To improve performance and independence with ADL's Thank you for the opportunity to evaluate your patient. For Medicare and Medicare HMO plans, please review the plan of care and approve it. It will need to be FAXED BACK to us at [phone] for Medicare purposes. For Medicare only, by signing this I certify the plan of care. Please let me know if there are questions or concerns regarding this plan of care. Physician Signature: Date:
--- NOTE | 2020-10-08 07:17 | HP.PTDCSUM_ITS ---
It has been my pleasure to treat CAMILO HOUSER referred by Dr. Kishor Henley MD, with the diagnosis of pubic pain for a total of 10 visit(s). Discharge Date: Please see the following information for a summary of their discharge status. Subjective: Patient reports that she much better- she is not pain free but she learned enough to keep her okay for the next 7 weeks. She still has a lot of pain with rolling over in bed and getting up off the floor is really hard. This is her second she is understands what she needs to do. Feels good wit h the exercises and is ready for discharge. The pain is still located in the groin area. Worst: 8/10 but mostly about a 4/10 Pubic Symphysis Pain Intensity (Out of 10): 4 LLE Pain Intensity (Out of 10): 4 Lumbar Spine Pain Intensity (Out of 10): 0 % Improvement: 75 Objective/Function: Posture: FH,RS, anterior pelvic tilt- can correct and maintain good posture with verbal cues. Observation: increased girth (girl) Gait: increased LIDIA, decreased stride length on rightl-turned out toes bilateral. stairs: BUE/single HR with recip and decreased speed. HR/TR: able to perform with no increase in pain. SLS:30 sec without LOB- mild hip drop much improved. ROM: hip/knee/ankle: WFL. Strength: core: fair, bilateral hip: flex: 4+/5, abd/add: 4+/5, ER: 4/5, IR: 4+/5. knee: flex/ext: 5/5, ankle: 5/5. No pain with strength testing. Goal 1:: Pt will be I with HEP and progression Goal Progress: Goal Met Goal 2:: Pt will report decreased pain for 1 week with 1/10 in order to increase I fucntional mobility Goal Progress: Progressing Goal 3:: Pt will demonstrate increase LE hip strength to 5/5 in order to increase I ADLs. Goal Progress: Progressing Goal 4:: Patient will maintain proper posture t/o tx session to demo increased core s/s. Plan: Patient to be discharged and continue home exercise program. Encouraged her to call if she has questions or pain increases. If there are questions or concerns regarding this patient's physical therapy, please feel free to call me at [phone]. Thank you for the referral of this patient. Sincerely, JANES ParhamT
== END 2020-10-08 10:39 | disposition home or self-care (01) ==
LOC: PT 07:00
PROVIDERS: Referring Provider Obstetrics & Gynecology; Visit Provider Obstetrics & Gynecology
DX: O26.892 Other specified pregnancy related conditions, second trimester (principal); R10.2 Pelvic and perineal pain; Z3A.00 Weeks of gestation of pregnancy not specified
CPT/HCPCS: 97113; 97162; 97164

== ENCOUNTER → 2020-10-30 | Outpatient (CLI) | payer MEDICAID, SELFPAY ==
[2018-04-29 10:51] VITALS: BMI 26.4
== END | disposition home or self-care (01) ==
PROVIDERS: Visit Provider Obstetrics & Gynecology
DX: Z36.85 Encounter for antenatal screening for Streptococcus B (principal)
CPT/HCPCS: 87081

== ENCOUNTER 2020-11-15 05:03 | Inpatient (IN) | payer MEDICAID, SELFPAY ==
[2018-04-29 10:51] VITALS: BMI 26.4
[2020-11-15] VITALS (21 sets, daily range): BP systolic 95–127; BP diastolic 41–79; PULSE 78–116; RESP 12–18; TEMP 36–37.1; O2SAT 96–99; BMI 33.1
[2020-11-15 05:01] LABS: ROM Internal Control Test YES-OK TO RESULT pt. (Internal QC)
[2020-11-15 05:02] LABS: ROM Patient Test POSITIVE (Negative)
[2020-11-15] MEDS: Lactated Ringers 1,000 ML 50 ML IV (05:10)
[2020-11-15] MEDS: Lactated Ringers 1,000 ML 999 ML IV (05:11)
[2020-11-15 05:24] LABS: Absolute Lymphocyte Count 1.12 X10^3/uL (0.83-4.51); Absolute Neutrophil Count 7.9 X10^3/uL (2.0-7.7); Basophil# 0.03 X10^3/uL; Basophil% 0.3 % (0-1); Eosinophil# 0.07 X10^3/uL; Eosinophils% 0.7 % (0-5); Hematocrit 36.9 % (37-47); Hemoglobin 11.7 g/dL (12.0-15.0); Lymphocyte # 1.12 X10^3/ul (0.83-4.51); Lymphocyte % 11.2 % (19-41); Mean Corp Hgb Conc 31.7 g/dL (32-36); Mean Corpuscular Hgb 27.1 pg (27.0-32.0); Mean Corpuscular Volume 85.4 fL (81-99); Mean Platelet Vol. 12.3 fl (6.2-12.0); Monocyte# 0.76 X10^3/uL; Monocyte% 7.6 % (0-10); NRBC Flagged by Analyzer 0 % (0-5); Neutrophil # 7.91 X10^3/uL (2.7-7.7); Neutrophil % 79.2 % (47-70); Platelet Count 209 K/mm3 (150-450); RBC Distribution Width CV 15.5 % (11.6-14.6); RBC Distribution Width SD 47.8 fl (35.1-43.9); Red Blood Count 4.32 M/mm3 (4.2-5.4)
[2020-11-15 05:31] LABS: Bedside Glucose 99 mg/dL (70-110)
--- NOTE | 2020-11-15 05:38 | PCM.HP.BLA ---
History and Physical Date of Admission: 11/15/20 ACOG ANTEPARTUM RECORD - HISTORY AND PHYSICAL (11/15/2020) Name: CLAUDIA KERN History of this : This is a 35 year old [id number] presents at 38 wks + 2 days gestation in active labor with spontaneous rupture of membranes at home. care has been remarkable for gestational diabetes and a prior section. OB Physician: BRE LOWE MD Sundance's Physician: [facility] ...................................................................... : 1985 Age: 35 Address: [address] [place] [address] Phone: H) [phone] Insurance Carrier: [employer] [facility] [employer] [facility] [phone] Emergency Contact: MICHEAL GARDNER / [phone] ...................................................................... Final ARMANDO: 11/27/20 By Ultrasound: 8 weeks 6 days PARITY: (G-Total Pregnancies P-Fullterm,Premature,Induced AB,Spont AB, Ectopics, Multiple,Living) ARMANDO CONFIRMATION: By LMP: 02/21/20 Initial Exam: 11/27/20 By First Ultrasound Exam: 11/27/20 Final ARMANDO: 11/27/20 OB PROBLEM LIST: JANIE II 2018; neg pap 2018, neg pap 2019. For repeat pap in 2022 Declines genetic screening EPDS on 04/10/2020 = 4 GDMA1 for vasectomy LGA EFW >90% HC 95% AC 96% Prior C/S, plans R C/S ALLERGIES: No Known Allergies MEDICATIONS: doxylamine succinate 25 mg tablet 1 PO qHS DHA 200 mg capsule One tablet by mouth daily promethazine 25 mg tablet 1 POevery 4 to 6 hours as needed pyridoxine (vitamin B6) 25 mg tablet 1 PO qHS SOCIAL HISTORY: Smoking - Quit Feb 04, 2020. Alcohol Use - occasionally not while Diet - balanced Diet, occ pop and used to be big coffee drinker. Water 07/07 gal Lifestyle - low stress lifestyle and Exercise - Active w home and two y o. Employer - homemaker Job Description - Illicit Drug Use - denies use of street drugs Sexual Activity - Residence - lives w/ Place of - [place], [place] Spouse-Sig Other Name - Micheal Kern Spouse-Sig Other Occupation - Owns [employer] Spouse-Sig Other Phone No - [phone] Children Name(s) - Alek (01/23/18) JW PRIOR DELIVERY HISTORY DEL DATE GEST LAB WT LB WT OZ TYPE ANES LABOR TX 21 Jan 20 40 32 9 2 C-Sec Epidural No ANTEPARTUM FLOW CHART VISIT GE RTC FU F F TX U U DATE WK MD WKS HT PN HR M SS BP ED WT TX GL D EF ST __ ____ ___ __ __ ___ __ __ __ ___ __ __ __ ___ __ 07 November JM 1 37 V + + 112/70 sl 205 tr - Oct JM 1 36 V on + 100/72 sl 202 tr - Oct JM 2 34 V + + 116/72 0 199 tr ne Sep JM 2 32 V on + 120/78 0 199 tr ne Oct 01 JM 2 29 - + + 114/68 0 197 ne ne Sep 30 JM 2 28 - + + 134/86 0 196 tr - Aug 30 JM 4 25 - + + 120/72 0 192 18 Jul 26 JM 4 21 - + + 118/72 0 191 ne ne Jun 22 JMW 4 18 + ? 116/74 0 181 tr ne May 18 JM 4 13 - + O 100/68 0 176 - - Apr 12 JM 4 8 - on US 100/64 0 169 tr - ANTEPARTUM NOTE(S): Nov 09 2020: Ctxs-occas, Low pressure Oct 30 2020: GBS today Oct 16 2020: Oct 02 2020: Sep 17 2020: Sep 04 2020: see blood sugars Aug 20 2020: worsening pubic pain Jul 23 2020: Jun 27 2020: vericosities left leg, waist high maternity hose rx given May 24 2020: see note Apr 23 2020: COMPREHENSIVE ANTEPARTUM NOTE(S): Nov 09 2020: 37wk, GBS neg. BPP today for LGA and GDMA1 8/8. Continue BPP qvisit. GDMA1 fasting 80's 2hr PP 110's. Scheduled for repeat c/s at 39wks 11/26/20. JANICE Nov 06 2020: H taken to OB. tkg Oct 30 2020: GBS today, LARC declined. Reviewed FM, SROM. Planned R C/S. Declined Tdap. Copy of blood sugars for review. LMT Oct 30 2020: 36wk, U/s today with LGA EFW 3332g >90% HC 95% AC 96%. BPP 8/8. GDMA1 Fasting 80's 2hr PP 90-110. For BPP qvisit. Educated pt on 2hr GTT and risk for future diabetes. For repeat c/s at 39wks 12/27/20. to get vasectomy. Oct 16 2020: Claudia ia here for PNV. States she is getting uncomfortable. Having good FM. No edema presently but states she will swell sometimes by end of day. Occ BH reported. No conerns. Infomred that GBS will be obtained at next apt in 2 weeks. Urine tr/neg. LSS Oct 16 2020: 34wk, GDMA1 Fasting 90 1hr PP 110. For growth u/s next visit then BPP qwk with visits, all ordered. Scheduled for repeat c/s at 39wks 12/27/20. Oct 02 2020: Claudia is here following US for PNV. Having good FM. Some BH ctx. Feeling well without compliants or concerns today. No edema noted. Urine tr/neg. LSS Oct 02 2020: 32wk, growth u/s today AGA 85% AC 91% 2229g. For repeat growth u/s in 4 weeks, ordered. GDMA1 Fasting 90 2hr PP 110. For repeat c/s at 39wks, ordered. Sep 17 2020: 29wk. GDMA1 Fasting 95-90 2hr PP 90-110. For Growth u/s next visit. For repeat c/s at 39wks, needs scheduled. Sep 04 2020: Claudia is here for discussion of newly diagnosed GDM. She has discrepency of blood sugars using her meter and her moms meter and number were very different. She called the [employer] and they sent a new meter. She is anxioius today about discussion of blood sugars with Dr Lowe, blood pressure slightly elevated 134/86. T Sep 04 2020: 28wk, GDMA1 Fasting 90 2hr PP 110-120 does have a few elevated blood sugars overall average wnl. Pt was using two glucometers because she felt hers was not accurate, other glucometer was on the higher side. Pt called [employer] and company sent her a new machine. Will continue forward with only one machine. Discussed GDMA diet and exercise. For 2 week follow up. Growth u/s at 32wks ordered, will sche Aug 20 2020: GCT today. Having signficant pain in pubic bone and down L leg. Feels pain with any mvmt, especially rolling over in bed. Would be interested in PT. T Aug 20 2020: 25wk, still with pubic bone/labial pain that is constant. only feels improved with feet are elevated. Has difficulty sleeping. Ordered PT for pain. 1hr GTT today. JM Jul 23 2020: Claudia is here for PNV. States she feels pretty good with bouts of nausea and vomiting for a brief time only in the am. Having good FM. Is having c/o sharp pain in the pubic area occuring any time that she moves. Relieved by sitting. No edema noted. Glucola and instruction sheet given. Voices understanding. LSS Jul 23 2020: 21wk, anatomy u/s last visit wnl. Baby girl. Today with pubic bone, discussed yoga/belly band/tylenol. For 1hr GTT next visit. JM Jun 27 2020: Claudia is here for PNV following US. States that she is feeling much better with very little to no N/V. Eating and drinking without difficulty. Has not felt FM yet. No problems with edema but has a large vericosity in left inner thigh and knee area. Painful at times. Urine dipped tr and neg. No other concerns for today. LSS May 24 2020: Claudia is here for visit. She reports feeling slightly better but still has a good amount of nausea. Advised regarding small, frequent meals, and could try Pepcid. Call if not keeping anything down > than 24 hours. Declines carrier screening and Quad screen. Plans Influenza vaccine. LMT May 24 2020: 13wk, mild nausea. For anatomy u/s at next visit. JANICE Apr 24 2020: TELEHEALTH NOB-- Claudia is a 34 yo G 2 P 1 homemaker with ARMANDO 5-25-21 planning a RCS at [facility] w spinal. using [facility] for post disch ped care and will breastfeed. Micheal, her is salesman/owner of a carole business. They are pleased about the pg. Their son, Alek is 2 1/2 yo. Alek was del by PCS in meconium at [facility] after 32 hours of labor for FTP at wt 9# 2 oz at 40.5 weeks. Apr 23 2020: Claudia is here for PNV repeat . G 2 P 1. States that she is having vomiting in the morning by afternoon she can keep food down. Expressed that she would like something for the nausea. She is on a bland diet that helps (rice, chicken noodle soup ad saltiene crackers). She is taking PN vitamins. She lost 3 lbs in 2 weeks. NOB pkt reviewed and given to PT, consents signed. No other concern Apr 23 2020: 8wk, PNP wnl, O pos. u/s today with FINAL ARMANDO: 11/28/19 by LMP c/w 8wk U/s. N/V, Diclegis started, phenergan sent. Pt with some aggression/emotion felt, feels safe at home well supported. Discussed conservative management vs medical management. To continue with conservative management and if worsening for medical management. Pt declines genetic sreening. JANICE Apr 10 2020: Claudia is here for missed menses appt. She reports LMP of 02/20, +UPT today in office, EDC 11/27/20. She is on PNV. Notes nausea and fatigue that is manageable, declines medication. She was an occ smoker after the of her last son but does not smoke anymore. Educational materials are provided and reviewed. OTC meds for minor discomforts reviewed. Encouraged increased fluids, healthy REVIEW OF SYSTEMS: GENERAL - Denies fever, or chills SKIN - Denies rash, new skin lesions, or change in moles EYES - Denies blurred vision, or change in visual acuity EARS - Denies ear pain, or difficulty hearing NOSE - Denies nasal congestion, discharge, or bleeding MOUTH - Denies sore throat, or difficulty swallowing NECK - Denies pain or swelling RESPIRATORY - Denies shortness of breath, cough, wheezing CARDIOVASCULAR - Denies palpitations, chest pain, orthopnea, PND, peripheral edema, syncope or claudication GASTROINTESTINAL - Denies nausea, vomiting, diarrhea, constipation, Denies abdominal pain, melena and or bright red blood GENITOURINARY - Denies dysuria, frequency of urination, urgency, or hesitancy MUSCULOSKELETAL - Denies joint or muscle pain, or back pain NEUROLOGICAL - Denies localized numbness, weakness, or tingling PSYCHIATRIC - Denies depression, anxiety, substance abuse or suicide attempts ENDOCRINE - Denies heat or cold intolerance, weight loss or gain, increasing thirst HEMATO-IMMUNOLOGIC - Denies easy bruising, bleeding, oral ulcerations or recurrent infections GENETICS SCREENING: Age 35+ years: No Thalassemia: No Neural Tube Defect: No Down Syndrome: No ERMA-SACHS: No Sickle Cell Disease: No Hemophilia: No Musc. Dystrophy: No Cystic Fibrosis: No-declines screening Craig Chorea: No Mental Retardation: No Fragile X: No Other genetic: No Other defects: No SABs/still births: No Drugs since LMP: Yes INFECTION HISTORY: High risk AIDS: No High risk Hepatitis: No Exposed to TB: No Exposed to Herpes: No Rash/viral illness since LMP: No History of STD: No MENSTRUAL HISTORY: *Menses Amount/Duration: 4-5 DAYSMenses Regularity: Regular* PAST SUMMARY: PARITY: 1. Total Pregnancies............ 2 2. Full Term Pregnancies........ 1 3. Premature.................... 0 4. Abortions - Induced.......... 0 5. Abortions - Spontaneous...... 0 6. Ectopics..................... 0 7. Multiple Births.............. 0 8. Living Children.............. 1 PAST #1: Date of :.................. 01/23/18 Gestation Weeks:................ 40 Length of labor(hours):......... 32 Sex:............................ M Weight-lbs:............... 9 Weight-oz:................ 2 Type of Delivery:............... C-Sect Type of Anesthesia:............. Epidural Place of Delivery:.............. [place] Treatment of Labor?:.... No Comment: FTP,MEC PHYSICAL EXAMINATION General Appearence: 35 yo female in no acute distress Vital Signs: AF, VSS Heart: RRR without rubs or gallops Lungs: CTA x 2 Breasts: deferred Abdomen: gravid Pelvis: Cervix: 1-2/50 gross rupture of membranes Presentation: cephalic Station: High Fetus: Size: AGA Movement: present Heart: present LAB TEST(S) ORDERED SINCE:03/02/20 04/13/2020 PAP IG HPV APTIMA 16/18,45 04/13/2020 CHLAMYDIA/GC ABDIRAHMAN APTIMA 04/12/2020 RPR 04/12/2020 CULTURE, URINE 04/11/2020 RUBELLA IGG 04/11/2020 HIV - WCH 04/11/2020 HEPATITIS C ANTIBODY 04/11/2020 HEPATITIS B SURFACE ANTIGEN 04/10/2020 URINALYSIS, ROUTINE (DIPSTICK) 04/10/2020 T AND S-NO CHARGE W/PNP 04/10/2020 CBC W/DIFF, AUTOMATED 11/15/2020 CBC W/DIFF, AUTOMATED 11/15/2020 BEDSIDE GLUCOSE 11/15/2020 (ROM) RUPTURE OF MEMBRANES 11/02/2020 RULE OUT BETA STREP (GRP. B) 08/23/2020 GESTATIONAL GTT 3HR 100G 08/20/2020 GLUCOSE CHALLENGE GEST 1H 50G 08/20/2020 CBC-COMPLETE BLOOD CNT NO DIFF == ==== Order Observation Description Value Ref_Range A* Site == ==== BEDSIDE GLUCOSE NOTE ANAYA BEDSIDE GLUCOSE FINGERSTICK GLU 99 mg/dL 70-110 POCL MANAGEMENT OF PATIENT CARE PER NURSING PROTOCOL CBC W/DIFF, AUT NOTE ANAYA CBC W/DIFF, AUT WBC 10.0 K/mm3 4.4-11.0 ML CBC W/DIFF, AUT RBC 4.32 M/mm3 4.2-5.4 ML CBC W/DIFF, AUT HGB 11.7 g/dL 12.0-15.0 L ML CBC W/DIFF, AUT HCT 36.9 37-47 L ML CBC W/DIFF, AUT MCV 85.4 fL 81-99 ML CBC W/DIFF, AUT MCH 27.1 pg 27.0-32.0 ML CBC W/DIFF, AUT MCHC 31.7 g/dL 32-36 L ML CBC W/DIFF, AUT RDW CV 15.5 11.6-14.6 H ML CBC W/DIFF, AUT RDW SD 47.8 fl 35.1-43.9 H ML CBC W/DIFF, AUT PLT 209 K/mm3 150-450 ML CBC W/DIFF, AUT MPV 12.3 fl 6.2-12.0 H ML CBC W/DIFF, AUT NEUT% 79.2 47-70 H ML CBC W/DIFF, AUT LY% 11.2 19-41 L ML CBC W/DIFF, AUT MONO% 7.6 0-10 ML CBC W/DIFF, AUT EO% 0.7 0-5 ML CBC W/DIFF, AUT BASO% 0.3 0-1 ML CBC W/DIFF, AUT IG% 1.000 0.0-0.9 H ML IG% - Immature Granulocytes (promyelocytes, myelocytes and metamyelocytes) > 1% indicates that a LEFT SHIFT is Present. CBC W/DIFF, AUT ABSOLUTE NEUT 7.9 X10 3/uL 2.0-7.7 H ML CBC W/DIFF, AUT ABSOLUTE LYMPH 1.12 X10 3/uL 0.83-4.51 ML CBC W/DIFF, AUT NUCLEATED RBC 0 0-5 ML (ROM) RUPTURE O NOTE ANAYA (ROM) RUPTURE O ROM POSITIVE Negative A ML Amniotic fluid present indicates rupture of Membranes. RESULTS CALLED TO GAYLE BOGGS WP 11/15/20 0501 Becki Juarez. REPORT READ BACK BY SAME. RULE OUT BETA S NOTE ANAYA GESTATIONAL GTT NOTE ANAYA GESTATIONAL GTT 3HR GTT- GEST. MG/DL H ML FASTING 95 Col: 08/23/20 0658 GLUCOSE TOLERANCE TEST FOR Reference Interval GESTATIONAL DIABETES Fasting <105 mg/dL 1 hour <190 mg/dl 2 hour <165 mg/dl 3 hour <145 mg/dl 1 HR GLU 216 H Col: 08/23/20 0805 2 HR GLU 167 H Col: 08/23/20 0905 3 HR GLU 137 Col: 08/23/20 1010 GLUCOSE CHALLEN NOTE ANAYA GLUCOSE CHALLEN GLU GEST 50G 1H 159 mg/dL 70-140 H ML CBC-COMPLETE BL NOTE ANAYA CBC-COMPLETE BL WBC 11.1 K/mm3 4.4-11.0 H ML CBC-COMPLETE BL RBC 3.95 M/mm3 4.2-5.4 L ML CBC-COMPLETE BL HGB 11.7 g/dL 12.0-15.0 L ML CBC-COMPLETE BL HCT 36.6 37-47 L ML CBC-COMPLETE BL MCV 92.7 fL 81-99 ML CBC-COMPLETE BL MCH 29.6 pg 27.0-32.0 ML CBC-COMPLETE BL MCHC 32.0 g/dL 32-36 ML CBC-COMPLETE BL RDW CV 14.6 11.6-14.6 ML CBC-COMPLETE BL RDW SD 49.7 fl 35.1-43.9 H ML CBC-COMPLETE BL PLT 252 K/mm3 150-450 ML CBC-COMPLETE BL MPV 11.0 fl 6.2-12.0 ML CULTURE, URINE NOTE ANAYA RPR NOTE ANAYA RPR RPR NONREACTIVE NONREACTIVE ML HEPATITIS C ANT NOTE ANAYA HEPATITIS C ANT HEPATITIS C AB Non-Reactive Nonreactive ML Non Reactive: < 0.8 Equivocal: >/= 0.8 to < 1.0 Reactive: >/= 1.0 The CDC recommends that a reactive/equivocal HCV antibody result be followed up by the HCV Nucleic Acid Amplification test ([id number]) HEPATITIS B JERAMY NOTE ANAYA HEPATITIS B JERAMY HEPB SURFACE AG Non-Reactive Nonreactive ML HIV - WCH NOTE ANAYA HIV - W[facility] HIV - [facility] Non-Reactive Nonreactive ML RUBELLA IGG NOTE ANAYA RUBELLA IGG RUBELLA IGG 203.3 IU/mL ML Antibody results Interpretation of Immune Status < 5 IU/ml Presumed Non-immune 5 - < 10 IU/ml Equivocal > or = 10 IU/ml Presumed Immune Reason for Type AND Screen/Red Cells: Surgery? N [facility]~[address] [place], [address]~ T AND BLOOD TYPE GEL O POSITIVE N ML T AND AB SCREEN GEL NEGATIVE N ML CBC W/DIFF, AUT NOTE ANAYA CBC W/DIFF, AUT WBC 8.3 K/mm3 4.4-11.0 ML CBC W/DIFF, AUT RBC 4.48 M/mm3 4.2-5.4 ML CBC W/DIFF, AUT HGB 13.4 g/dL 12.0-15.0 ML CBC W/DIFF, AUT HCT 41.2 % 37-47 ML CBC W/DIFF, AUT MCV 92.0 fL 81-99 ML CBC W/DIFF, AUT MCH 29.9 pg 27.0-32.0 ML CBC W/DIFF, AUT MCHC 32.5 g/dL 32-36 ML CBC W/DIFF, AUT RDW CV 13.2 % 11.6-14.6 ML CBC W/DIFF, AUT RDW SD 45.1 fl 35.1-43.9 H ML CBC W/DIFF, AUT PLT 293 K/mm3 150-450 ML CBC W/DIFF, AUT MPV 10.4 fl 6.2-12.0 ML CBC W/DIFF, AUT NEUT% 78.5 % 47-70 H ML CBC W/DIFF, AUT LY% 14.6 % 19-41 L ML CBC W/DIFF, AUT MONO% 5.8 % 0-10 ML CBC W/DIFF, AUT EO% 0.7 % 0-5 ML CBC W/DIFF, AUT BASO% 0.2 % 0-1 ML CBC W/DIFF, AUT IM GRAN % 0.200 % 0.0-0.9 ML IG% - Immature Granulocytes (promyelocytes, myelocytes and metamyelocytes) > 1% indicates that a LEFT SHIFT is Present. CBC W/DIFF, AUT ABSOLUTE NEUT 6.5 X10 3/uL 2.0-7.7 ML CBC W/DIFF, AUT ABSOLUTE LYMPH 1.21 X10 3/uL 0.83-4.51 ML CBC W/DIFF, AUT NRBC, FLAGGED 0 % 0-5 ML URINALYSIS, ROU NOTE ANAYA URINALYSIS, ROU COLOR Yellow Yellow ML URINALYSIS, ROU CLARITY Sl. Cloudy Clear ML URINALYSIS, ROU GLUCOSE, UR Normal mg/dl Normal ML URINALYSIS, ROU BILIRUBIN URINE Negative mg/dL Negative ML URINALYSIS, ROU KETONE UR 5 mg/dl Negative H ML URINALYSIS, ROU SP.GR. DIPSTX 1.020 1.002-1.030 ML URINALYSIS, ROU PH UR 6.0 5.0 - 8.0 ML URINALYSIS, ROU PROT DIPSTX Negative mg/dl Negative ML URINALYSIS, ROU UROBILI Normal mg/dl Normal ML URINALYSIS, ROU NITRITE UR Negative Negative ML URINALYSIS, ROU OCCULT BLOOD-UR Negative /ul Negative ML URINALYSIS, ROU LEUK ESTERASE 500 /ul Negative H ML PAP IG HPV APTI NOTE ANAYA PAP IG HPV APTI ORDER LC IGP,Aptima HPV,rfx 16/18,45 Interpretation: NEGATIVE FOR INTRAEPITHELIAL LESION AND MALIGNANCY Specimen Adequacy: Satisfactory for evaluation. Endocervical and/or squamous metaplastic cells (endocervical component) are present. Comments: The pap smear is a screening test designated to aid in the detection of pre-malignant and malignant conditions of the uterine cervix. It is not a diagnostic procedure and should not be used as the sole means of detecting cervical cancer. Both false-positive and false-negative reports do occur. This liquid based ThinPrep(R) pap test was screened with the use of an image guided system. Performed by [facility]i [facility] [employer] (ASCP) This nucleic acid amplification test detects fourteen high-risk HPV types (16,18,31,33,35,39,45,51,52,56,58,59,66,68) without differentiation. HPV Results: HPV Aptima: Negative TESTING PERFORMED AT [facility]. ORIGINAL REPORT ON FILE IN LAB CONTAINS ADDITIONAL TEST SITE INFORMATION. CHLAMYDIA/GC NA NOTE ANAYA CHLAMYDIA/GC NA CHLAMY,NUC ACID Negative Negative LC CHLAMYDIA/GC NA GC BY NUC ACID Negative Negative LC Performed at: =G - [facility], [place] [id number] Pipe Insulator Helper: Monse Raines MD, Phone: [phone] Group B Beta Streptococcus is not isolated. [facility] [address] [place] [address] / REHABILITATION SERVICES DISCHARGE SUMMARY MR#: [id number] Acct: [id number] Name: CLAUDIA KENR Rep #: [id number] : 1985 35 From: Arabella Dejesus DPT Referring Dr.: Dr. Bre Lowe MD Status: REG RCR Insurance: [facility] COMM[employer] PLAN SELF PAY INSURANCE It has been my pleasure to treat CLAUDIA KERN referred by Dr. Bre Loew MD, with the diagnosis of pubic pain for a total of 10 visit(s). Discharge Date: Please see the following information for a summary of their discharge status. Subjective: Patient reports that she much better- she is not pain free but she learned enough to keep her okay for the next 7 weeks. She still has a lot of pain with rolling over in bed and getting up off the floor is really hard. This is her second she is understands what she needs to do. Feels good with the exercises and is ready for discharge. The pain is still located in the groin area. Worst: 8/10 but mostly about a 4/10 Pubic Symphysis Pain Intensity (Out of 10): 4 LLE Pain Intensity (Out of 10): 4 Lumbar Spine Pain Intensity (Out of 10): 0 % Improvement: 75 Objective/Function: Posture: FH,RS, anterior pelvic tilt- can correct and maintain good posture with verbal cues. Observation: increased girth (girl) Gait: increased LIDIA, decreased stride length on rightl-turned out toes bilateral. stairs: BUE/single HR with recip and decreased speed. HR/TR: able to perform with no increase in pain. SLS:30 sec without LOB- mild hip drop much improved. ROM: hip/knee/ankle: WFL. Strength: core: fair, bilateral hip: flex: 4+/5, abd/add: 4+/5, ER: 4/5, IR: 4+/5. knee: flex/ext: 5/5, ankle: 5/5. No pain with strength testing. Goal 1:: Pt will be I with HEP and progression Goal Progress: Goal Met Goal 2:: Pt will report decreased pain for 1 week with 1/10 in order to increase I fucntional mobility Goal Progress: Progressing Goal 3:: Pt will demonstrate increase LE hip strength to 5/5 in order to increase I ADLs. Goal Progress: Progressing Goal 4:: Patient will maintain proper posture t/o tx session to demo increased core s/s. Plan: Patient to be discharged and continue home exercise program. Encouraged her to call if she has questions or pain increases. If there are questions or concerns regarding this patient's physical therapy, please feel free to call me at [phone]. Thank you for the referral of this patient. Sincerely, Arabella Dejesus DPT <Electronically signed by Arabella Dejesus DPT> 10/08/20 0717 CC: No Primary Care Physician; Dr. Bre Lowe MD ELR Signed [facility] [address] [place] [address] / REHABILITATION SERVICES INITIAL EVALUATION MR#: [id number] Acct: [id number] Name: CLAUDIA KERN Rep #: [id number] : 1985 35 From: Arabella Dejesus DPT Referring Dr.: Dr. Bre Lowe MD Status: REG RCR Insurance: [facility] COMMUN[employer] PLAN SELF PAY INSURANCE Patient's Visit Information CLAUDIA KERN is a 35 year old F referred to Physical Therapy by Dr. Bre Lowe MD with a diagnosis of pubic pain. Date of Evaluation: 08/30/20 Physical Therapist: Arabella Dejesus DPT - Visit Plan Frequency: 2x /Week Duration: 4 Weeks Plan: aquatic therapy- increase core and LE strength and stability. 6 months - Subjective 2 months now has expericend excrutiating pubic pain- is 6 months . Pt experinced this with her last pregancy but was not as bad. 2.5 year old other child. Pain: 6/10. L leg inner thigh and pubic area. burning sensation (lightening, fire). sporatic. first thing in morning is bad. allevaite: 1/10 sitting with feet up. has to find correct position in sitting. wosrt: 8/10 rolling over in bed, putting on pants, walking. denies numbness and tingling. sleep: uncomfortable, rolling over is excrutating. pillow between knees and one behind back. occupation: stay at home mom. Activity: taking care of her 2.5 year old. Meds: . PMHx: gestational diabetes (on thursday) - Objective Posture: FH,RS, anterior pelvic tilt. Observation: 6 month (girl). Gait: increased LIDIA, decreased stride length bilateral-turned out toes bilateral. stairs: BUE/single HR with recip and decreased speed. HR/TR: able to perform with no increase in pain. SLS: increased time to weight shift- 5 seconds bilateral UE support. ROM: hip/knee/ankle: WFL. Strength: core: poor, bilateral hip: flex: 4-/5, abd/add: 4-/5 with pain, ER: 4/5, IR: 4-/5 with pain. knee: flex/ext: 4/5, ankle: 4+/5 - Goals Goal 1:: Pt will be I with HEP and progression Goal Time Frame: 4-6 Weeks Goal 2:: Pt will report decreased pain for 1 week with 1/10 in order to increase I fucntional mobility Goal Time Frame: 4-6 Weeks Goal 3:: Pt will demonstrate increase LE hip strength to 5/5 in order to increase I ADLs. Goal Time Frame: 4-6 Weeks Goal 4:: Patient will maintain proper posture t/o tx session to demo increased core s/s. Goal Time Frame: 4-6 Weeks - Rehabilitation Potential Physical Therapy Diagnosis: Pt presents with decreased core strength and stability secondary to pregancy. Rehabilitation Potential: Good - Anticipated Interventions Patient/Client Instruction: Educate patient on: Plan of Care, Benefits of Fitness Program For the Purpose of:: To improve muscle performance and motor function Therapeutic Exercise to Include: Strength training, Balance training, Body mechanics, Postural training, Flexibilty training, Gait and locomotor training, In an aquatic setting, Dynamic Lumbar Stabilization For the Purpose of:: To improve muscle performance and motor function, To improve performance and independence with ADL's Thank you for the opportunity to evaluate your patient. For Medicare and Medicare HMO plans, please review the plan of care and approve it. It will need to be FAXED BACK to us at [phone] for Medicare purposes. For Medicare only, by signing this I certify the plan of care. Please let me know if there are questions or concerns regarding this plan of care. Physician Signature: Date: <Electronically signed by Arabella Dejesus DPT> 08/30/20 0823 CC: No Primary Care Physician; Dr. Bre Lowe MD ELR Signed Urine Culture ORGANISM 1: Mixed Gram Positive Organisms Atlas Count 11,000-25,000 MIX CULTURE Mixed contaminants. Submit a new specimen if indicated. == ==== Impression /Plan: 38 wks + 2 days intrauterine in active labor with rupture of membranes with prior section. Preparations in progress for delivery.
--- NOTE | 2020-11-15 05:43 | EX.PCM.OBRPT ---
Assessment & Plan (1) Gestational diabetes: (2) Previous section: COMMENT: 2018 Maternal Data Information Final ARMANDO: 11/27/20 Final ARMANDO Source: US <20 weeks Details Operative Information Date of Procedure: 11/15/20 Pre-Operative Diagnosis: Prior Section in Labor, Gestational Diabetes Post-Operative Diagnosis: Prior Section in Labor, Gestational Diabetes Classification: JANAE Procedure Type: low transverse nursing program coordinator #1: Rayna Gonzales Type of Anesthesia: Spinal (With Duramorph) Anesthesiologist: Aaron Berger Antibiotic Given: Ancef 2 grams IV x1 Drain: Gay to straight drain Estimated Blood Loss: <500 cc Fluids Replaced: Crystalloid Findings Description of Procedure: Surgeon: Jan Ruffin MD, FACOG Indication: This is a 35-year-old who presents for her second at 38+ weeks gestation after presenting in labor with ruptured membranes this morning. care has otherwise been uneventful except for gestational diabetes. The patient has been counseled regarding the risk and indications of this procedure including the possibility of bleeding infection and injury to surrounding structures such as bowel bladder. All questions were answered. Procedure: Patient was taken to the operating room where after spinal anesthesia was placed, the patient was prepped and draped in usual sterile fashion and a Gay catheter was placed. The abdomen was entered through the patient's prior Pfannenstiel incision and peritoneum was entered bluntly. After developing a bladder flap on the lower uterine segment a low transverse incision was made on the uterus and head was easily delivered onto the operative field the nose mouth and oropharynx were bulb suctioned. Subsequently a viable female was born with Apgars of 8/9. The was noted to cry move all extremities vigorously on the operative field. A 4-5 cm blood clot was also noted to come out of the uterus with the baby and placenta. The umbilical cord was doubly clamped and ligated and infant handed to the nursery personnel who were present for the delivery. Placenta was delivered and noted to be 3 vessels and normal except for approximately 10% of the area which showed possible abruption. Uterus was exteriorized and remaining placental tissue was removed. The uterus was then closed in 2 layers first with running locked 0 Vicryl suture followed by a second imbricating layer with 0 Vicryl suture. 0 Vicryl suture was then used in a horizontal mattress interrupted fashion to affect final hemostasis of the uterine incision line. Normal fallopian tubes and ovaries were visualized and the uterus was returned to the pelvis. Hemostasis was noted and rectus abdominis muscles were reapproximated in the midline with interrupted Number 0 Vicryl suture in a horizontal mattress fashion. Fascia was closed with running Number 1 PDS Strata fix suture. Subcutaneous tissue was irrigated with copious amounts of saline solution and then closed with running 3-0 Vicryl suture. Skin was closed with 4-0 monocryl suture in a running subcuticular fashion. Steri strips and a Mepilex dressing were placed across the incision. The patient tolerated the procedure well and was taken to the recovery room in satisfactory condition. Sponge, needle, and instrument counts were all reportedly correct. EBL was less than 500 cc. Ancef 2 gms IV was given prior to the procedure. Presentation: Positive for Vertex Amniotic Membrane Rupture Type: Spontaneous Amniotic Fluid Description: Clear Placental Delivery Description: Spontaneous Placenta Disposition: [facility] Percentage of Placenta Abruption: 10 Specimen(s) Sent to Pathology: Placenta Cord Vessel Description: 3 Vessels Cord Entanglement: None Cord Gases: ABG A Gender: Female (1 minute): 8 (5 minute): 9 Complications Risks of Surgery Discussed w/Patient: Bleeding, Infection and Injury to surrounding structure(s) including bowel and bladder Complications: None Admit VTE Documentation VTE Present on Admission: Yes VTE Mechan Device Prophylaxis: SCD's VTE Pharm Prophylaxis Ordered: Yes
--- NOTE | 2020-11-15 05:52 | PCM.DC ---
Discharge Instructions Diet Discharge Diet: No restrictions Activity Discharge Activity: May not drive while taking narcotic pain medications., May Shower and May Take a Tub Bath (in 7 days) May resume sexual activity in: 4-6 weeks Lifting Restrictions: 20 pounds Dressing / Incision Call your doctor if your incision/area has: Continuous Slow Oozing, Sudden Increased Bleeding, Increased Pain/ Swelling, Increased Redness and Foul Smelling Discharge Call your doctor if you observe: Fever of 101 or Higher, Inability to urinate, Inability to have a bowel movement and Using more than one pad per hour Change Dressing in: 1 week (leave steri-strips in place) Follow Up Care Please Follow Up With: Kishor Henley MD When: Call [phone] for appointment to be seen in 2 weeks. Test Results: Test results from this visit will be discussed in further detail at your follow-up appointment, if applicable. Discharge Plan Admission Admit Date/Time: 11/15/20 05:03 Primary Reason for Your Visit: Repeat Attending Provider: Jan Ruffin Primary Care Provider: Care Physician,No Primary Discharge Orders/Prescriptions Prescriptions: New oxycodone 5 mg capsule 5 mg PO Q6H PRN (Reason: pain) 7 Days Qty: 14 RF: 0 docusate sodium [Colace] 100 mg capsule 100 mg PO BID PRN (Reason: constipation) Qty: 60 RF: 1 Continued Vitamin 1 EACH tablet 1 tab PO DAILY RF: 0 Referrals / Follow Up: Care Physician,No Primary [Primary Care Provider] - Disposition Disposition (needs filled in before D/C Order can be placed): Home, self care
[2020-11-15] MEDS: Sodium Citrate/Citric Acid 30 ML UDC PO (05:58)
[2020-11-15] MEDS: Cefazolin 2 GM in 0.9% Normal Saline 100 ML IV (06:08)
[2020-11-15] MEDS: Oxytocin 30 units/NS 500 ml 30 UNITS/500 ML IV.SOLN 167 UNITS IV (07:43)
[2020-11-15] MEDS: Ketorolac 30 MG/ML Syringe IV ×3 (07:43→19:55)
[2020-11-15 08:40] LABS: Bedside Glucose 103 mg/dL (70-110)
[2020-11-15] MEDS: Acetaminophen 500 MG Tablet 1000 MG PO ×3 (09:34→21:36)
[2020-11-15] MEDS: Lactated Ringers 1,000 ML 100 ML IV (10:57)
[2020-11-15] MEDS: Cefazolin 1 GM/50 ML BAG IV ×2 (14:05→21:37)
[2020-11-15] MEDS: Enoxaparin 40 MG/0.4 ML Syringe SC (19:55)
[2020-11-15] MEDS: 0.9% Saline Lock 10 ML Syringe IV ×2 (19:56→21:37)
[2020-11-15] MEDS: Loratadine 10 MG Tablet PO (20:40)
[2020-11-15] MEDS: DiphenhydrAMINE 25 MG Capsule PO (21:36)
[2020-11-16] MEDS: Ketorolac 30 MG/ML Syringe IV (02:01)
[2020-11-16] MEDS: 0.9% Saline Lock 10 ML Syringe IV (02:01)
[2020-11-16] MEDS: Acetaminophen 500 MG Tablet 1000 MG PO ×4 (03:55→21:42)
[2020-11-16 03:57] VITALS: BP 95/54; PULSE 84; RESP 16; TEMP 36.4
[2020-11-16 04:13] LABS: Hematocrit 29.7 % (37-47); Hemoglobin 9.3 g/dL (12.0-15.0); Mean Corp Hgb Conc 31.3 g/dL (32-36); Mean Corpuscular Hgb 26.6 pg (27.0-32.0); Mean Corpuscular Volume 85.1 fL (81-99); Mean Platelet Vol. 11.6 fl (6.2-12.0); Platelet Count 169 K/mm3 (150-450); RBC Distribution Width CV 15.9 % (11.6-14.6); RBC Distribution Width SD 48.9 fl (35.1-43.9); Red Blood Count 3.49 M/mm3 (4.2-5.4); White Blood Count 8.7 K/mm3 (4.4-11.0)
[2020-11-16 05:41] LABS: Bedside Glucose 80 mg/dL (70-110)
[2020-11-16 08:00] VITALS: BP 110/68; PULSE 86; RESP 18; TEMP 36.6; O2SAT 100
[2020-11-16] MEDS: Ibuprofen 600 MG Tablet PO ×3 (08:19→21:42)
[2020-11-16] MEDS: Enoxaparin 40 MG/0.4 ML Syringe SC (09:10)
[2020-11-16] MEDS: Loratadine 10 MG Tablet PO (09:11)
[2020-11-16] MEDS: Senna/Docusate Sodium 1 Tablet PO (09:12)
--- NOTE | 2020-11-16 09:56 | PCM.PN.OB ---
Subjective Subjective Patient without complaints. Tolerating diet well. Denies flatus. Minimal vaginal bleeding noted. Pain well controlled. Objective Data Objective Data Vital Signs: Vital Signs Temp Pulse Resp BP Pulse Ox 97.8 F 86 18 110/68 100 11/16/20 08:00 11/16/20 08:00 11/16/20 08:00 11/16/20 08:00 11/16/20 08:00 Oxygen Delivery Method Room Air Weight: 205 lb 3.2 oz Body Mass Index (BMI) 33.1 Intake & Output: Intake and Output for Last 24 Hours 11/14/20 11/15/20 11/16/20 23:59 23:59 23:59 Intake Total 2374.16 / 2374.16 0 / 0 Output Total 1200 / 1200 1200 / 1200 Balance 1174.16 / 1174.16 -1200 / -1200 Lab / Micro Data Result Diagrams: 11/16/20 04:00 Labs: Laboratory Results - last 24 hr 11/16/20 11/16/20 04:00 05:34 WBC 8.7 RBC 3.49 L Hgb 9.3 L Hct 29.7 L MCV 85.1 MCH 26.6 L MCHC 31.3 L RDW Std Deviation 48.9 H RDW Coeff of Oseas 15.9 H Plt Count 169 MPV 11.6 POC Glucose 80 Micro: Microbiology 11/15/20 05:20 Interface Orders SARS-CoV-2 Antigen (Rapid) - Final Physical Exam Narrative Mepilex dressing is clean, dry, intact. Good urine output. Hemoglobin okay. Assessment & Plan (1) Previous section: COMMENT: 2018 PLAN: Doing well postoperative day #1 status post repeat . Continuing present care.
[2020-11-16 14:00] VITALS: BP 105/69; PULSE 94; RESP 18; TEMP 36.7; O2SAT 98
[2020-11-16] MEDS: oxyCODONE 5 MG Tablet PO (14:11)
[2020-11-16 21:32] VITALS: BP 112/70; PULSE 91; RESP 16; TEMP 36.6
[2020-11-17] MEDS: Ibuprofen 600 MG Tablet PO ×4 (02:09→20:16)
[2020-11-17 02:10] VITALS: BP 97/58; PULSE 81; RESP 18; TEMP 36.6
[2020-11-17] MEDS: Acetaminophen 500 MG Tablet 1000 MG PO ×4 (04:18→22:13)
--- NOTE | 2020-11-17 07:39 | PCM.PN.OB ---
Subjective Subjective Patient without complaints. Tolerating diet well. Positive flatus and pain well controlled. Considering going home today. Objective Data Objective Data Vital Signs: Vital Signs Temp Pulse Resp BP Pulse Ox 97.9 F 81 18 97/58 L 98 11/17/20 02:10 11/17/20 02:10 11/17/20 02:10 11/17/20 02:10 11/16/20 14:00 Oxygen Delivery Method Room Air Weight: 205 lb 3.2 oz Body Mass Index (BMI) 33.1 Intake & Output: Intake and Output for Last 24 Hours 11/15/20 11/16/20 11/17/20 23:59 23:59 23:59 Intake Total 2374.16 / 2374.16 0 / 0 Output Total 1200 / 1200 1200 / 1200 Balance 1174.16 / 1174.16 -1200 / -1200 Lab / Micro Data Result Diagrams: 11/16/20 04:00 Micro: Microbiology 11/15/20 05:20 Interface Orders SARS-CoV-2 Antigen (Rapid) - Final Assessment & Plan (1) Previous section: COMMENT: 2018 PLAN: Doing well postoperative day #2 status post repeat . Patient unsure if she desires to go home today but routine discharge instructions given.
[2020-11-17 08:26] VITALS: BP 103/61; PULSE 85; RESP 14; TEMP 36.4; O2SAT 97
[2020-11-17] MEDS: Loratadine 10 MG Tablet PO (09:24)
[2020-11-17] MEDS: Enoxaparin 40 MG/0.4 ML Syringe SC (09:24)
[2020-11-17] MEDS: Senna/Docusate Sodium 1 Tablet PO (09:24)
[2020-11-17 13:57] VITALS: BP 118/81; PULSE 85; RESP 16; TEMP 36.6; O2SAT 100
[2020-11-17 20:13] VITALS: BP 122/70; PULSE 80; RESP 16; TEMP 36.7
[2020-11-18] MEDS: Ibuprofen 600 MG Tablet PO ×2 (02:45→07:59)
[2020-11-18 02:46] VITALS: BP 115/78; PULSE 82; RESP 18; TEMP 36.4
[2020-11-18] MEDS: Acetaminophen 500 MG Tablet 1000 MG PO (04:24)
[2020-11-18 07:50] VITALS: BP 119/70; PULSE 79; RESP 16; TEMP 36.7; O2SAT 97
--- NOTE | 2020-11-18 09:36 | PCM.PN.OB ---
Subjective Subjective Patient without complaints. Feeling better today. Baby has been reversed transported back to this hospital with possibility of going home today. Wants to go home if baby is able to go. Objective Data Objective Data Vital Signs: Vital Signs Temp Pulse Resp BP Pulse Ox 98.1 F 79 16 119/70 97 11/18/20 07:50 11/18/20 07:50 11/18/20 07:50 11/18/20 07:50 11/18/20 07:50 Oxygen Delivery Method Room Air Weight: 205 lb 3.2 oz Body Mass Index (BMI) 33.1 Intake & Output: Intake and Output for Last 24 Hours 11/16/20 11/17/20 11/18/20 23:59 23:59 23:59 Intake Total 0 / 0 Output Total 1200 / 1200 Balance -1200 / -1200 Lab / Micro Data Result Diagrams: 11/16/20 04:00 Micro: Microbiology 11/15/20 05:20 Interface Orders SARS-CoV-2 Antigen (Rapid) - Final Assessment & Plan (1) Previous section: COMMENT: 2018 PLAN: Doing well postoperative day #3 status post repeat . Will discharge home later today if baby is able to be discharged.
--- NOTE | 2020-11-18 09:37 | PCM.DC.SUM ---
Providers Date of Admission: 11/15/20 Primary Care Physician: Gogo Primary Care Phys Reason For Visit: C SECTION DELIVERY Diagnosis Discharge Diagnosis (1) Previous section: Status: Acute Code(s): Z98.891 - History of uterine scar from previous surgery Medications at Discharge Home Medications Vitamin 1 tab PO DAILY 01/23/18 docusate sodium [Colace] 100 mg PO BID PRN #60 cap 11/17/20 oxycodone 5 mg PO Q6H PRN 7 Days #14 cap 11/17/20 Hospital Course Summary of Care Provided Hospital Course: Patient was admitted had the above procedure and findings noted. Postoperatively the patient did well demonstrating a stable hemoglobin and bowel function by postoperative day #2. Is felt that she was ready for discharge on postoperative day #3. ABG / Lab / Microbiology Data Result Diagrams: 11/16/20 04:00 Microbiology: Microbiology 11/15/20 05:20 Interface Orders SARS-CoV-2 Antigen (Rapid) - Final D/C Instructions Discharge Diet: No restrictions Discharge Activity: May not drive while taking narcotic pain medications., May Shower and May Take a Tub Bath (in 7 days) May resume sexual activity in: 4-6 weeks Call your doctor if your incision/area has: Continuous Slow Oozing, Sudden Increased Bleeding, Increased Pain/ Swelling, Increased Redness and Foul Smelling Discharge Call your doctor if you observe: Fever of 101 or Higher, Inability to urinate, Inability to have a bowel movement and Using more than one pad per hour Please Follow Up With: Kishor Henley MD When: Call [phone] for appointment to be seen in 2 weeks. Meaningful Use Info Meaningful Use Diagnoses (Choose all that apply): None applicable Discharge Plan Admission Admit Date/Time: 11/15/20 05:03 Primary Reason for Your Visit: Repeat Attending Provider: Jan Ruffin Primary Care Provider: Care Physician,Gogo Primary Discharge Orders/Prescriptions Prescriptions: New oxycodone 5 mg capsule 5 mg PO Q6H PRN (Reason: pain) 7 Days Qty: 14 RF: 0 docusate sodium [Colace] 100 mg capsule 100 mg PO BID PRN (Reason: constipation) Qty: 60 RF: 1 Continued Vitamin 1 EACH tablet 1 tab PO DAILY RF: 0 Referrals / Follow Up: Care Physician,No Primary [Primary Care Provider] - Disposition Disposition (needs filled in before D/C Order can be placed): Home, self care
[2020-11-18 12:00] VITALS: BP 123/80; PULSE 84; RESP 16; TEMP 36.6; O2SAT 99
== END 2020-11-18 14:15 | disposition home or self-care (01) | DRG 540 ==
LOC: WPOUT 05:04 → WP 05:04
PROVIDERS: Admitting Provider Obstetrics & Gynecology; Visit Provider Obstetrics & Gynecology
DX: O24.420 Gestational diabetes mellitus in childbirth, diet controlled (principal); Z3A.38 38 weeks gestation of pregnancy; Z37.0 Single live birth
CPT/HCPCS: 59025; 59050; 82962; 84112; 85025; 85027; 86850; 86900; 86901; 87426; 99218; 99251; J7120; A4216; G0378; G0463; J2405

== ENCOUNTER → 2021-01-10 06:41 | Outpatient (CLI) | payer MEDICAID, SELFPAY ==
[2020-11-15 05:10] VITALS: BMI 33.1
[2021-01-10 08:02] LABS: Glucose 75GTT - 30 minutes 132 mg/dL (100-160)
[2021-01-10 08:02] LABS: Glucose 75GTT - Fasting 86 mg/dL (70-99)
[2021-01-10 09:39] LABS: Glucose 75GTT - 120 minutes 90 mg/dL (70-140)
[2021-01-10 09:44] LABS: Glucose 75GTT - 60 minutes 139 mg/dL (100-160)
== END ==
PROVIDERS: Referring Provider Obstetrics & Gynecology; Visit Provider Obstetrics & Gynecology
DX: Z86.32 Personal history of gestational diabetes (principal)
CPT/HCPCS: 36415; 82951; 82952

== ENCOUNTER → 2021-04-30 08:43 | Outpatient (CLI) | payer MEDICAID, SELFPAY | PROVIDERS: Referring Provider Obstetrics & Gynecology; Visit Provider Obstetrics & Gynecology | DX: Z39.1 Encounter for care and examination of lactating mother (principal) | CPT/HCPCS: 96158; 96159 ==